=== PATIENT | male | born 1985 | race Caucasian/White ===

== ENCOUNTER 2019-06-17 23:48 | Emergency (ER) | payer OTHER, MEDICAID, SELFPAY ==
[2019-06-17 23:49] VITALS: BP 118/71; PULSE 70; RESP 16; TEMP 36.8; O2SAT 100
--- NOTE | 2019-06-17 23:53 | ED.SYNCOPE ---
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 He says that he had 2 episodes of collapsing today. He says that he just remembers feeling really tired then falling to the ground. He is not sure how long he was on the ground in either of these episodes. He does not believe that he every lost conciousness. No dizziness/light headedness. He has never had this happen before. He reports recently going through a difficult divorce. Since that time he has been under a lot of physical and emotional distress. Poor appetite. 20 pound weight loss. Related Data Home Medications Medication Instructions Recorded Confirmed No Home Medications 06/18/19 06/18/19 Allergies Allergy/AdvReac Type Severity Reaction Status Date / Time No Known Allergies Allergy Verified 06/18/19 00:43 Review of Systems Review of Systems: All systems reviewed & are unremarkable except as noted in HPI and below Constitutional: Constitutional: Denies fever(s) and Reports weakness Eyes: Eyes: Denies change in vision ENT: Denies dizziness Cardiovascular: Cardiovascular: Denies chest pain Respiratory: Respiratory: Denies dyspnea Gastrointestinal: Gastrointestinal: Denies abdominal pain, Denies nausea and Denies vomiting Musculoskeletal: Musculoskeletal: Reports myalgias Neurologic: Denies dizziness, Denies focal weakness, Denies numbness and Reports weakness Psychiatric: Psychiatric: Reports anxiety and Reports depression PMFSH Past Medical History Medical History Arthritis DDD (degenerative disc disease), cervical IBS (irritable bowel syndrome) Surgical History Surgical History Hx of tonsillectomy Social History Social History Smoking packs per day: 0.5 Smoking cigarettes per day: 10.0 Years smoked: 16 Smoking pack-years: 8.00 Gender identity (if verbalized by the patient): Male Exam Const: General: healthy appearing, no acute distress and alert Nutritional Appearance: well nourished Orientation/consciousness: patient oriented x3 HENMT: Head: normal to inspection Resp: Effort & Inspection: normal respiratory effort Auscultation: clear to auscultation bilaterally Cardio: Rate: regular rate Rhythm: regular rhythm Skin: General skin exam: normal color and no pallor Neuro: General: patient oriented x3, moves all extremities, no focal motor deficits and CN's II-XI intact bilaterally Speech: normal speech Extrem: General: normal to inspection Psych: Affect: Sad affect present Course Vital Signs Vital signs: Vital Signs Temperature 36.8 C 06/17/19 23:49 Pulse Rate 70 06/17/19 23:49 Respiratory Rate 16 06/17/19 23:49 Blood Pressure 118/71 06/17/19 23:49 Pulse Oximetry 100 06/17/19 23:49 Temperature 36.8 C 06/17/19 23:49 Pulse Rate 56 L 06/18/19 01:45 Respiratory Rate 19 06/18/19 01:45 Blood Pressure 115/73 06/18/19 01:45 Pulse Oximetry 100 06/18/19 01:45 MDM - Syncope MDM Narrative Medical decision making narrative: Orthostatics mildly positive. IV fluids initiated. Differential Diagnosis Differential diagnosis: Likely syncope due to orthostatic hypotension, dehydration and other (depression, anemia, rhabdomyolysis ) Medical Records Attestation: I reviewed the patient's medical records. Lab Data Attestation: I reviewed the patient's lab results. Result diagrams: 06/18/19 00:10 06/18/19 00:10 Labs: Lab Results 06/18/19 06/18/19 06/18/19 Range/Units 00:10 00:10 00:10 WBC 7.1 (4.5-10.0) K/mm3 RBC 3.97 L (4.6-6.20) M/mm3 Hgb 12.5 L (14.0-18.0) g/dL Hct 37.8 L (42.0-52.0) % MCV 95.2 (80
[2019-06-17 23:58] VITALS: BP 125/86; PULSE 75; RESP 12; O2SAT 100
--- NOTE | 2019-06-18 00:02 | ECG_ITS ---
Measurements Intervals [place] Rate: 64 P: 62 MA: 143 QRS: 45 QRSD: 97 T: 50 QT: 398 QTc: 413 Interpretive Statements SINUS RHYTHM WITH MARKED SINUS ARRHYTHMIA ST ELEVATION IN ANTEROLATERLAT LEADS- PROBABLY EARLY REPOLARIZATION BASELINE ARTIFACT- I, II, III, AVR, AVL, AVF BORDERLINE ECG Electronically Signed On 06-18-2019 7:23:11 CDT by Dexter Mitchell D.O.
[2019-06-18 00:16] VITALS: BP 109/78; BP 115/80; BP 127/87; PULSE 65; PULSE 72; PULSE 85
[2019-06-18 00:25] LABS: Basophils Absolute Auto 0.1 K/mm3 (0.0-0.1); Basophils Percent Auto 0.8 % (0.2-1.2); Eosinophils Absolute Auto 0.2 K/mm3 (0-0.3); Eosinophils Percent Auto 2.1 % (0-4.4); Hematocrit 37.8 % (42.0-52.0); Hemoglobin 12.5 g/dL (14.0-18.0); Immature Granulocyte Absolute 0.01 K/mm3 (0.00-0.031); Immature Granulocyte Percent A 0.1 % (0-0.5); Lymphocytes Absolute Auto 2.14 K/mm3 (0.9-3.2); Lymphocytes Percent Auto 30.3 % (18.3-44.2); Mean Corpuscular HGB Conc 33.1 g/dl (32-36); Mean Corpuscular Hemoglobin 31.5 pg (26-34); Mean Corpuscular Volume 95.2 fl (80-100); Mean Platelet Volume 10.8 fl (7.4-10.4); Monocytes Absolute Auto 0.5 K/mm3 (0.1-0.6); Monocytes Percent Auto 6.8 % (2.6-8.5); Neutrophils Absolute Auto 4.2 K/mm3 (1.3-6.7); Neutrophils Percent Auto 59.9 % (45.5-73.1); Platelet Count Result 195 k/mm3 (150-375); Red Blood Count 3.97 M/mm3 (4.6-6.20); White Blood Count 7.1 K/mm3 (4.5-10.0)
[2019-06-18] MEDS: SODIUM CHLORIDE 0.9% IV 1,000 ML 999 ML IV CONT (00:28)
[2019-06-18 00:40] LABS: Blood Urea Nitrogen 13 mg/dL (9-20); Calcium 9.2 mg/dL (8.4-10.2); Carbon Dioxide 26 mmol/L (22-30); Chloride 103 mmol/L (98-107); Creatine Kinase 161 U/L (55-170); Estimated Glomerular Filt Rate > 60; Glucose 130 mg/dL (75-110); Potassium 3.2 mmol/L (3.4-5.0); Sodium 137 mmol/L (137-145)
[2019-06-18 00:55] VITALS: PULSE 60
[2019-06-18 01:45] VITALS: BP 115/73; PULSE 56; RESP 19; O2SAT 100
== END 2019-06-18 01:50 | disposition home or self-care (01) ==
PROVIDERS: Emergency Provider Emergency Medicine
DX: R55 Syncope and collapse (principal); M19.90 Unspecified osteoarthritis, unspecified site; M50.30 Other cervical disc degeneration, unspecified cervical region; K58.9 Irritable bowel syndrome, unspecified; F17.200 Nicotine dependence, unspecified, uncomplicated; R94.31 Abnormal electrocardiogram [ECG] [EKG]; D64.9 Anemia, unspecified; R53.83 Other fatigue
CPT/HCPCS: 36415; 80048; 82550; 84443; 85025; 93005; 96360; 99283; J7030

== ENCOUNTER 2019-12-05 17:24 | Emergency (ER) | payer SELFPAY ==
[2019-12-05 17:25] VITALS: BP 142/77; PULSE 70; RESP 18; TEMP 36.4; O2SAT 100
--- NOTE | 2019-12-05 17:41 | ED.DENTAL ---
HPI - Dental/Oral General Chief complaint: Dental/Oral Stated complaint: Tooth pain Time Seen by Provider: 12/05/19 17:29 Source: patient Mode of arrival: ambulatory Limitations: no limitations History of Present Illness HPI Narrative: This is a 34 year old male that presents to the ER for pain after recent tooth extraction. Reports he had 8 teeth extracted on Saturday and Saturday of this week. Reports he has had pain since the procedure. 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 He has not called his dentist about this yet. Denies fever. MD Complaint: tooth pain Related Data Allergies Allergy/AdvReac Type Severity Reaction Status Date / Time No Known Allergies Allergy Verified 12/05/19 17:26 Review of Systems Review of Systems: Narrative: CONSTITUTIONAL: Denies fever ENT: Reports dentalgia All systems reviewed & are unremarkable except as noted in HPI and below PMFSH Past Medical History Medical History (Updated 06/19/19 @ 00:00 by Abiola Crabtree) Arthritis DDD (degenerative disc disease), cervical IBS (irritable bowel syndrome) Surgical History Surgical History (Updated 12/05/19 @ 17:48 by Rosa Sullivan PA-C) Hx of tonsillectomy Social History Social History Smoking packs per day: 0.5 Smoking cigarettes per day: 10.0 Years smoked: 16 Smoking pack-years: 8.00 Gender identity (if verbalized by the patient): Male Exam Narrative: Exam Narrative: GENERAL: Well-appearing, well-nourished, and in no acute distress. HEAD: Normocephalic, atraumatic. EYES: EOMI. ENT: Mucous membranes moist. Oropharynx without tonsillar hypertrophy exudate or other lesions. Bilateral TMs pearly garcia non-bulging. Poor dentition. Several teeth extracted on the right upper and lower molars. Mild surrounding edema and erythema of the lower teeth, no fluctuance to suggest abscess NECK: Supple. No adenopathy or masses. CHEST: Clear to auscultation. No respiratory distress. No wheezes rales or rhonchi HEART: Regular rate and rhythm. No murmur heard. Normal peripheral pulses. EXTREMITIES: Normal range of motion. No edema. SKIN: Warm, dry, no rash. NEURO: No focal deficits. Alert and oriented x3. PSYCH: Normal mood and affect Course Vital Signs Vital signs: Vital Signs Temperature 97.6 F 12/05/19 17:25 Pulse Rate 70 12/05/19 17:25 Respiratory Rate 18 12/05/19 17:25 Blood Pressure 142/77 H 12/05/19 17:25 Pulse Oximetry 100 12/05/19 17:25 Temperature 97.6 F 12/05/19 17:25 Pulse Rate 70 12/05/19 17:25 Respiratory Rate 18 12/05/19 17:25 Blood Pressure 142/77 H 12/05/19 17:25 Pulse Oximetry 100 12/05/19 17:25 MDM - Dental/Oral MDM Narrative Medical decision making narrative: Patient presents to the emergency department after recent tooth extraction with pain. He is afebrile and nontoxic-appearing. Mild redness and swelling surrounding extraction of the lower teeth. No fluctuance noted to suggest abscess. Patient will be started on oral antibiotics. He was instructed to call his dentist on Saturday for follow-up. Patient was given warnings to return to the ER Critical Care Time Critical Care Time Critical Care Time: No Discharge Plan Discharge Clinical Impression: S/P tooth extraction Patient Disposition: Home, Self-Care Condition: Stable Instructions: Antibiotic Form, Tooth Extraction (DC) Additional Instructions: Return to the Emergency Department if you experience fever >101, increasing swelling and redness of your tooth, or any other symptoms that are concerning to you Take antibiotic as prescribed. Tylenol or Ibuprofen as needed for pain. Prescribed pain medication as needed. Ondansetron as needed for nausea Follow up with your dentist Prescriptions: New ondansetron 4 mg tablet,disintegrating 4 mg PO Q8H PRN (Reason: nausea and
[2019-12-05] MEDS: KETOROLAC (*BKC) 60 MG/2 ML VIAL IM (18:13)
== END 2019-12-05 18:14 | disposition home or self-care (01) ==
LOC: ANHED 17:55
PROVIDERS: Emergency Provider Emergency Medicine
DX: K08.89 Other specified disorders of teeth and supporting structures (principal); K58.9 Irritable bowel syndrome, unspecified; M19.90 Unspecified osteoarthritis, unspecified site; F17.210 Nicotine dependence, cigarettes, uncomplicated; Z98.818 Other dental procedure status
CPT/HCPCS: 96372; 99283; J1885

== ENCOUNTER 2020-06-04 10:43 | Emergency (ER) | payer MEDICAID, SELFPAY ==
[2020-06-04 11:05] VITALS: BP 103/69; PULSE 75; RESP 18; TEMP 36.6; O2SAT 100
[2020-06-04] MEDS: SODIUM CHLORIDE 0.9% IV 1,000 ML 999 ML IV CONT (11:55)
[2020-06-04] MEDS: KETOROLAC 30 MG/ML VIAL (*BKC) IV PUSH (11:56)
[2020-06-04] MEDS: METOCLOPRAMIDE HCL INJ 10 MG/2 ML VIAL IV PUSH (11:59)
[2020-06-04] MEDS: FAMOTIDINE 20 MG/2 ML VIAL IV PUSH (12:01)
--- NOTE | 2020-06-04 12:42 | ED.GENADULT ---
HPI - General Adult General Chief complaint: Neck Pain/Injury Stated complaint: neck pain/nausea Time Seen by Provider: 06/04/20 11:03 Source: patient Mode of arrival: ambulatory Limitations: no limitations History of Present Illness HPI narrative: Patient is a 34-year-old male who presents with posterior headache and neck pain that he woke up with this morning patient notes history of migraines with similar occurrence in the past denies injury or trauma or recent illness presents in no distress has not taken anything for his symptoms also notes light noise sensitivity patient on arrival otherwise in no distress resting comfortably presents with normal gait with normal speech patient does not see primary care Related Data Allergies Allergy/AdvReac Type Severity Reaction Status Date / Time No Known Allergies Allergy Verified 06/04/20 11:09 Review of Systems Review of Systems: All systems reviewed & are unremarkable except as noted in HPI and below PMFSH Past Medical History Medical History (Updated 06/04/20 @ 12:44 by Richardson Elam PA-C) Arthritis DDD (degenerative disc disease), cervical IBS (irritable bowel syndrome) Surgical History Surgical History Hx of tonsillectomy Social History Social History Smoking packs per day: 0.5 Smoking cigarettes per day: 10.0 Years smoked: 16 Smoking pack-years: 8.00 Gender identity (if verbalized by the patient): Male Exam Narrative: Exam Narrative: GENERAL: Well-appearing, well-nourished, and in no acute distress. HEAD: Normocephalic, atraumatic. EYES: PERRLA and EOMI. ENT: Nares clear, no rhinorrhea or epistaxis. Mucous membranes moist. NECK: Supple. No adenopathy or masses. No carotid bruits or JVD CHEST: Clear to auscultation. No respiratory distress. No wheezes rales or rhonchi HEART: Regular rate and rhythm. No murmur heard. EXTREMITIES: Normal range of motion. No edema. SKIN: Warm, dry, no rash. NEURO: No focal deficits. Alert and oriented x3. Cranial nerves II through XII grossly intact PSYCH: Normal mood and affect. Course Course Emergency Course: Patient hydrated and treated for migraine the emergency department noted resolution of symptoms feels comfortable for discharge home will follow with primary care ABCs and vital signs intact and stable Vital Signs Vital signs: Vital Signs Temperature 97.8 F 06/04/20 11:05 Pulse Rate 75 06/04/20 11:05 Respiratory Rate 18 06/04/20 11:05 Blood Pressure 103/69 06/04/20 11:05 Pulse Oximetry 100 06/04/20 11:05 Temperature 97.8 F 06/04/20 11:05 Pulse Rate 75 06/04/20 11:05 Respiratory Rate 18 06/04/20 11:05 Blood Pressure 103/69 06/04/20 11:05 Pulse Oximetry 100 06/04/20 11:05 Medical Decision Making MDM Narrative Medical decision making narrative: Patients headache was not sudden or maximal in onset. There are o focal neurological deficits on exam. Subarachnoid hemorrhage is felt to be unlikey at this time. There is no history of fever, and neck is supple without meningismus, making meningitis unlikely. No traumatic history or signs of trauma on exam. No risk factors for CVA, risk factors reviewed. NO ocular signs on exam and in history to suggest acute glaucoma. Patients headache is felt to be a reasonable candidate for outpatient evaluation Vital Signs Vital Signs: Vital Signs Temperature 97.8 F 06/04/20 11:05 Pulse Rate 75 06/04/20 11:05 Respiratory Rate 18 06/04/20 11:05 Blood Pressure 103/69 06/04/20 11:05 Pulse Oximetry 100 06/04/20 11:05 Temperature 97.8 F 06/04/20 11:05 Pulse Rate 75 06/04/20 11:05 Respiratory Rate 18 06/04/20 11:05 Blood Pressure 103/69 06/04/20 11:05 Pulse Oximetry 100 06/04/20 11:05 Discharge Plan Discharge Clinical Impression: Headache Patient Disposition: Home, Self-Care
[2020-06-04 12:56] VITALS: BP 103/53; PULSE 77; RESP 16; O2SAT 100
== END 2020-06-04 12:56 | disposition home or self-care (01) ==
PROVIDERS: Emergency Provider Emergency Medicine
DX: R51.9 Headache, unspecified (principal); M19.90 Unspecified osteoarthritis, unspecified site; K58.9 Irritable bowel syndrome, unspecified; M50.30 Other cervical disc degeneration, unspecified cervical region; F17.210 Nicotine dependence, cigarettes, uncomplicated
CPT/HCPCS: 96361; 96374; 96375; 99284; J1885; J2765; J7030

== ENCOUNTER 2020-11-18 09:21 | Emergency (ER) | payer OTHER, SELFPAY ==
--- NOTE | ~2020-11-18 | CT_ITS ---
EXAMINATION: CT brain wo con, CT cervical spine wo con EXAM DATE: 11/18/2020 11:16 INDICATION: Migraine, neck pain . Dizziness and nausea. TECHNIQUE: Spiral CT of the head was performed without contrast. Axial, coronal images were reviewed . Spiral CT of the cervical spine was performed without contrast. Axial images were reviewed. Coron al and sagittal reformatted images were also reviewed. [facility] 6[facility] (accession [id number]), 402.39 (accession [id number]) mGy-cm. The exposure was tailored according to patient size, and iterative reconstruction (ASIR) was used as additional do se reduction technique. There is no prior study for comparison. FINDINGS: HEAD CT: There is no acute intraparenchymal hemorrhage. No evidence of intraparenchymal brain mass l esion. No evidence of acute infarction. There is no mass effect or midline shift. There is no obstru ctive hydrocephalus suspected. There are no extra-axial collections. There are no acute calvarial f ractures. The orbits are unremarkable. Soft tissue is unremarkable. The visualized sinuses and mas toid air cells are well aerated. CERVICAL CT: Lung apices are clear. There is no evidence of acute cervical fracture. The odontoid pr ocess is intact. Pre-dens space is normal. Prevertebral soft tissue is normal. There are no soft t issue abnormalities identified. There is no disc space widening or traumatic vertebral body subluxat ion suspected. There is mild disc disease and uncovertebral joint arthropathy at C6-7. More diffuse mild cervical facet arthropathy. No stenosis. A detailed level by level evaluation of spondylosis can be added as addendum if requested. IMPRESSION: 1. No acute intracranial findings or cervical fracture. 2. Mild cervical spondylosis. Reviewed, dictated and finalized at location A. IMPRESSION: 1. No acute intracranial findings or cervical fracture. 2. Mild cervical spondylosis.
[2020-11-18 09:33] VITALS: BP 109/80; PULSE 79; RESP 16; TEMP 36.1; O2SAT 97
--- NOTE | 2020-11-18 10:49 | ED.NECK ---
HPI - Neck Pain/Injury General Chief Complaint: Neck Pain/Injury Stated Complaint: neck pain Time Seen by Provider: 11/18/20 10:11 Source: patient Mode of arrival: ambulatory Limitations: no limitations History of Present Illness HPI Narrative: This is a 34 year old male that presents to the ER for worsening neck pain over the last 2 weeks. Does report history of previous problems with the neck. Reports he is to have to get steroid injections in his neck. No new injuries or trauma. Reports sometimes the pain causes him to get migraines. He has been taking Excedrin with little relief. Denies fever, vision changes, vomiting, stiff neck, numbness, or weakness. Related Data Home Medications Medication Instructions Recorded Confirmed No Home Medications 11/18/20 11/18/20 Allergies Allergy/AdvReac Type Severity Reaction Status Date / Time No Known Allergies Allergy Verified 11/18/20 09:41 Review of Systems Review of Systems: CONSTITUTIONAL: Denies fever EYES: Denies visual changes GASTROINTESTINAL: Denies vomiting NEUROLOGIC: Reports headache. Denies numbness, or weakness. All systems reviewed & are unremarkable except as noted in HPI and below PMFSH Past Medical History Medical History (Updated 11/18/20 @ 12:53 by Rosa Sullivan PA-C) Arthritis DDD (degenerative disc disease), cervical IBS (irritable bowel syndrome) Surgical History Surgical History Hx of tonsillectomy Social History Social History (Updated 11/18/20 @ 10:52 by Rosa Sullivan PA-C) Smoking packs per day: 0.5 Smoking cigarettes per day: 10.0 Years smoked: 16 Smoking pack-years: 8.00 Substance use: never Gender identity (if verbalized by the patient): Male Exam Narrative: GENERAL: Well-appearing, well-nourished, and in no acute distress. HEAD: Normocephalic, atraumatic. EYES: PERRLA and EOMI. ENT: Nares clear, no rhinorrhea or epistaxis. Mucous membranes moist. Oropharynx without tonsillar hypertrophy exudate or other lesions. Bilateral TMs pearly garcia non-bulging NECK: Supple. No adenopathy or masses. Tender to palpation of the cervical paraspinal musculature. Normal range of motion CHEST: Clear to auscultation. No respiratory distress. No wheezes rales or rhonchi HEART: Regular rate and rhythm. No murmur heard. Normal peripheral pulses. EXTREMITIES: Normal range of motion. No edema. SKIN: Warm, dry, no rash. NEURO: No focal deficits. Alert and oriented x3. Cranial nerves II through XII grossly intact. Normal [id number] PSYCH: Normal mood and affect Course Vital Signs Vital signs: Vital Signs Temperature 97 F L 11/18/20 09:33 Pulse Rate 79 11/18/20 09:33 Respiratory Rate 16 11/18/20 09:33 Blood Pressure 109/80 11/18/20 09:33 Pulse Oximetry 97 11/18/20 09:33 Temperature 97 F L 11/18/20 09:33 Pulse Rate 87 11/18/20 11:30 Respiratory Rate 14 11/18/20 11:30 Blood Pressure 97/72 L 11/18/20 11:30 Pulse Oximetry 96 11/18/20 11:30 MDM - Neck Pain/Injury MDM Narrative Medical decision making narrative: Patient presents to the emergency department for ongoing neck pain over the last couple of weeks. Tender to palpation of the paraspinal cervical musculature. Normal range of motion in the neck. He is afebrile and nontoxic-appearing. His vitals are stable. He is neurologically intact. CBC is without leukocytosis. CT scan of the brain is without acute findings. CT scan of the cervical spine shows mild cervical spondylosis. No other acute findings. Patient was updated on case findings. Reports relief with migraine cocktail. He is stable and felt appropriate for further outpatient evaluation. He was given warnings to return to the ER Lab Data Attestation: I reviewed the patient's lab results. Result diagrams: 11/18/20 11:44 11/18/20 11:44 Labs: Lab Results 11/18/20 11/18/20 Range/Unit
[2020-11-18] MEDS: diphenhydrAMINE HCl INJ 50 MG/ML VIAL 25 MG IV PUSH (11:02)
[2020-11-18] MEDS: METOCLOPRAMIDE HCL INJ 10 MG/2 ML VIAL IV PUSH (11:02)
[2020-11-18] MEDS: KETOROLAC 30 MG/ML VIAL (*BKC) IV PUSH (11:03)
[2020-11-18] MEDS: SODIUM CHLORIDE 0.9% IV 1,000 ML 999 ML IV CONT (11:04)
[2020-11-18 11:30] VITALS: BP 97/72; PULSE 87; RESP 14; O2SAT 96
[2020-11-18 11:54] LABS: Basophils Absolute Auto 0.1 K/mm3 (0.0-0.1); Eosinophils Absolute Auto 0.2 K/mm3 (0-0.3); Eosinophils Percent Auto 2.5 % (0-4.4); Hematocrit 38.4 % (42.0-52.0); Hemoglobin 12.9 g/dL (14.0-18.0); Immature Granulocyte Absolute 0.02 K/mm3 (0.00-0.031); Immature Granulocyte Percent A 0.3 % (0-0.5); Lymphocytes Absolute Auto 1.58 K/mm3 (0.9-3.2); Lymphocytes Percent Auto 23.4 % (18.3-44.2); Mean Corpuscular HGB Conc 33.6 g/dl (32-36); Mean Corpuscular Hemoglobin 32.2 pg (26-34); Mean Corpuscular Volume 95.8 fl (80-100); Monocytes Absolute Auto 0.4 K/mm3 (0.1-0.6); Monocytes Percent Auto 5.9 % (2.6-8.5); Neutrophils Absolute Auto 4.5 K/mm3 (1.3-6.7); Neutrophils Percent Auto 66.9 % (45.5-73.1); Platelet Count Result 196 k/mm3 (150-375); Red Blood Count 4.01 M/mm3 (4.6-6.20); Red Cell Distribution Width 12.7 % (11.5-14.5); White Blood Count 6.8 K/mm3 (4.5-10.0)
[2020-11-18 12:10] LABS: Anion Gap 4 mmol/L (8-16); Blood Urea Nitrogen 9 mg/dL (9-20); Calcium 9.1 mg/dL (8.4-10.2); Carbon Dioxide 31 mmol/L (22-30); Chloride 106 mmol/L (98-107); Estimated CRCL calculation 108 ml/min; Estimated Glomerular Filt Rate > 60; Glucose 102 mg/dL (65-110); Potassium 4.5 mmol/L (3.4-5.0); Sodium 141 mmol/L (137-145)
[2020-11-18 12:51] VITALS: BP 101/66; PULSE 78; RESP 16; O2SAT 99
[2020-11-18 13:30] LABS: Erythrocyte Sedimentation Rate 10 mm/hr (0-20)
== END 2020-11-18 13:15 | disposition home or self-care (01) ==
PROVIDERS: Physician Assistant; Emergency Provider Emergency Medicine
DX: M54.2 Cervicalgia (principal); G44.209 Tension-type headache, unspecified, not intractable; M19.90 Unspecified osteoarthritis, unspecified site; K58.9 Irritable bowel syndrome, unspecified; F17.210 Nicotine dependence, cigarettes, uncomplicated; M47.812 Spondylosis without myelopathy or radiculopathy, cervical region
CPT/HCPCS: 36415; 70450; 72125; 80048; 85025; 85652; 96365; 96375; 99284; J0131; J1100; J1200; J1885; J2765; J7030

== ENCOUNTER 2021-09-28 15:32 | Emergency (ER) | payer OTHER, SELFPAY ==
[2021-09-28 15:34] VITALS: BP 124/85; PULSE 77; RESP 14; TEMP 37.3; O2SAT 100
--- NOTE | 2021-09-28 16:11 | ED.WOUNDLAC ---
HPI - Wound/Laceration General Chief Complaint: Wound/Laceration Stated Complaint: left hand laceration Time Seen by Provider: 09/28/21 15:49 History of Present Illness HPI narrative: Patient is a 35-year-old [id number] male here for evaluation of a laceration sustained to the dorsal aspect of his left third digit while he was at work. Patient states that he scraped his hand against a piece of metal while he was working leading to the laceration. No blood thinner use, bleeding controlled prior to arrival. He denies any numbness, weakness, or tingling in his fingers. He is unsure of his last tetanus shot. Related Data Home Medications Medication Instructions Recorded Confirmed No Home Medications 11/18/20 11/18/20 Allergies Allergy/AdvReac Type Severity Reaction Status Date / Time No Known Allergies Allergy Verified 09/28/21 15:37 Review of Systems Review of Systems: Gen.: Denies fevers or chills Eyes: Denies eye pain or visual change ENT: Denies congestion Respiratory: Denies shortness of breath or cough CV: Denies chest pain or palpitations GI: Denies abdominal pain nausea, emesis or diarrhea denies burning, urgency, frequency or hematuria Musculoskeletal: Denies back pain or muscle pain Neuro: Denies numbness, tingling, weakness or focal weakness Skin: Reports laceration Except as documented, all other systems reviewed and negative [facility] Past Medical History Medical History (Updated 09/28/21 @ 16:50 by Rosa Cannon PA-C) Arthritis DDD (degenerative disc disease), cervical IBS (irritable bowel syndrome) Surgical History Surgical History Hx of tonsillectomy Social History Social History (Updated 11/18/20 @ 10:52 by Rosa Sullivan PA-C) Smoking packs per day: 0.5 Smoking cigarettes per day: 10.0 Years smoked: 16 Smoking pack-years: 8.00 Substance use: never Gender identity (if verbalized by the patient): Male Exam Narrative: Gen: Alert, oriented, no acute distress Eyes: EOMI, no icterus Pulm: Respirations even and unlabored, symmetric thorax expansion, no audible stridor or visible cyanosis CV: Regular rate per telemetry GI: No distension, no voluntary/involuntary guarding Neuro: AOx4, moves all extremities without apparent difficulty or weakness, follows commands MSK: Full range of motion in left upper extremity. Sensation intact to entirety of digit. Skin: Patient has c-shaped superficial laceration to dorsal aspect of left third digit proximal to the PIP joint with active bleeding; irrigated and examined under bloodless field; no evidence of FB Psych: Normal mood/affect, insight/judgement good, adequate fund of knowledge, recent/remote memory intact Course Vital Signs Vital signs: Vital Signs Temperature 99.2 F 09/28/21 15:34 Pulse Rate 77 09/28/21 15:34 Respiratory Rate 14 09/28/21 15:34 Blood Pressure 124/85 09/28/21 15:34 Pulse Oximetry 100 09/28/21 15:34 Oxygen Delivery Room Air 09/28/21 15:34 Temperature 99.2 F 09/28/21 15:34 Pulse Rate 80 09/28/21 16:55 Respiratory Rate 16 09/28/21 16:55 Blood Pressure 124/85 09/28/21 15:34 Pulse Oximetry 99 09/28/21 16:55 Oxygen Delivery Room Air 09/28/21 15:34 Procedures Laceration Laceration 1: Date: 09/28/21 Time: 16:48 Site: other (L 3rd digit) Size (cm): 1.5 Description: linear Depth: simple, single layer Local Anesthetic: lidocaine 1% Amount of anesthesia used (mL): 2 Pre-repair: wound explored, irrigated and irrigated extensively ====== Skin Level ====== Skin layer closed with: other (ethilon) Size (cm): 5-0 Number of sutures: 3 Technique: simple, interrupted ====== Subcutaneous Layer ====== ====== Muscle Layer ====== ====== Tendon Layer ====== Dressing: cleansed with betadi
[2021-09-28] MEDS: TETANUS,DIPHTHERIA,AC PERTUSSIS ADULT (0.5 ML) BOOSTRIX IM (16:15)
--- NOTE | 2021-09-28 16:27 | PC.NURSE ---
upon provider placing steri-strips, patient started to have bleeding control issues. provider placing sutures
[2021-09-28] MEDS: LIDOCAINE HCL 1% LOCAL INJ 20 ML VIAL (16:31)
[2021-09-28 16:55] VITALS: PULSE 80; RESP 16; O2SAT 99
== END 2021-09-28 16:56 | disposition home or self-care (01) ==
PROVIDERS: Emergency Provider General Practice
DX: S61.213A Laceration without foreign body of left middle finger without damage to nail, initial encounter (principal); Z23 Encounter for immunization; M19.90 Unspecified osteoarthritis, unspecified site; K58.9 Irritable bowel syndrome, unspecified; F17.210 Nicotine dependence, cigarettes, uncomplicated; W26.8XXA Contact with other sharp object(s), not elsewhere classified, initial encounter
CPT/HCPCS: 12001; 90471; 90715; 99282

== ENCOUNTER 2021-10-04 12:50 | Emergency (ER) | payer OTHER, SELFPAY ==
--- NOTE | 2021-10-04 12:55 | ED.WOUNDLAC ---
HPI - Wound/Laceration General Chief Complaint: Wound/Laceration Stated Complaint: lac left hand Time Seen by Provider: 10/04/21 13:01 Source: patient and RN notes reviewed Mode of arrival: ambulatory Limitations: no limitations History of Present Illness HPI narrative: 35-year-old male presents with concern for a laceration to the third digit of his left hand. He reports he sustained a laceration 6 days ago and received sutures in the ER. He reports 3 sutures that are still intact. He reports he is concerned because he feels that the stitches are pulling when he moves his hands or makes a fist. He reports the areas become slightly red and oozes a small amount of blood. He denies any purulent drainage, wound dehiscence, finger pain, swelling, redness. Reports he has been applying Neosporin. 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 Extremity Location: Left: hand Related Data Home Medications Medication Instructions Recorded Confirmed No Home Medications 11/18/20 11/18/20 Allergies Allergy/AdvReac Type Severity Reaction Status Date / Time No Known Allergies Allergy Verified 09/28/21 15:37 Review of Systems Review of Systems: CONSTITUTIONAL: Denies malaise, chills, sweats, or fever. SKIN: Reports laceration to the third digit of the left MUSCULOSKELETAL: Denies muscle skeletal pain NEUROLOGIC: Denies numbness, weakness All systems reviewed & are unremarkable except as noted in HPI and below PMFSH Past Medical History Medical History (Updated 10/04/21 @ 13:18 by Cherelle Banks NP) Arthritis DDD (degenerative disc disease), cervical IBS (irritable bowel syndrome) Surgical History Surgical History Hx of tonsillectomy Social History Social History (Updated 11/18/20 @ 10:52 by Rosa Sullivan PA-C) Smoking packs per day: 0.5 Smoking cigarettes per day: 10.0 Years smoked: 16 Smoking pack-years: 8.00 Substance use: never Gender identity (if verbalized by the patient): Male Comments At time of signature, agree with nursing past medical, surgical, social and family history. There is no relevant family history pertinent to the presenting complaint Exam Narrative: GENERAL: Well-appearing, well-nourished, and in no acute distress. HEAD: Normocephalic, atraumatic. EYES: PERRLA, conjunctivae clear, and EOMI. ENT: Mucous membranes moist. Oropharynx without edema, erythema or lesions. NECK: Supple. No lymphadenopathy CHEST: Clear to auscultation. No respiratory distress. HEART: Regular rate and rhythm. SKIN: Warm, dry. C-shaped laceration noted to the dorsal aspect of the third digit of the left hand between the PIP and the MIP joints, 3 intact sutures noted wound is well approximated with a small amount of dried blood. No surrounding erythema, edema, induration noted, no purulent drainage noted. Range of motion, strength, sensation grossly normal in the digit NEURO: Alert and oriented x3. PSYCH: Normal mood and affect Course Course Emergency Course: Wound was cleaned, palmar splint applied to prevent movement of the digit to facilitate healing. Patient is aware of diagnosis, understands and agrees to treatment plan. Anticipatory guidance given. Patient agrees to follow-up as directed and is aware of reasons to seek care at the emergency department. Portions of this record may have been created with voice recognition software Level of Care: Express Care Visit Vital Signs Vital signs: Reviewed. MDM - Wound/Laceration MDM Narrative Medical decision making narrative: Exam findings show no acute concerns or changes; patient is non-toxic appearing and is in no distress. Patient is appropriate for outpatient treatment and follow-up. Differential Diagnosis Differential diagnosis: Likely laceration, abrasion and avulsion of skin Critical Care Time Critical Care Time Critical
[2021-10-04 12:56] VITALS: BP 112/72; PULSE 86; RESP 18; TEMP 36.7; O2SAT 100
== END 2021-10-04 13:28 | disposition home or self-care (01) ==
PROVIDERS: Emergency Provider Nurse Practitioner
DX: Z48.01 Encounter for change or removal of surgical wound dressing (principal)
CPT/HCPCS: 29130; 99212; G0463

== ENCOUNTER 2021-10-13 12:16 | Emergency (ER) | payer OTHER, SELFPAY ==
[2021-10-13 12:35] VITALS: BP 113/72; PULSE 85; RESP 16; TEMP 36.4; O2SAT 100
--- NOTE | 2021-10-13 13:00 | ED.EXTPRO ---
HPI - Extremity Problem General Chief complaint: Wound/Laceration Stated complaint: STITCHES REMOVAL Time Seen by Provider: 10/13/21 13:00 History of Present Illness HPI Narrative: Ced Fowler is a 35 yo male here for suture removal of L hand, base 3rd finger- 3 sutures, Have been in for 11 days Related Data Home Medications Medication Instructions Recorded Confirmed No Home Medications 11/18/20 10/13/21 Allergies Allergy/AdvReac Type Severity Reaction Status Date / Time No Known Allergies Allergy Verified 10/13/21 13:03 Review of Systems Review of Systems: CONSTITUTIONAL: Denies fever, chills, sweats. EYES: Denies visual changes, redness, discharge. ENT: Denies rhinorrhea, congestion, sore throat, otalgia. CARDIOVASCULAR: Denies chest pain, palpitations, edema. RESPIRATORY: Denies dyspnea, wheezing, cough GASTROINTESTINAL: Denies abdominal pain, nausea, vomiting, diarrhea. GENITOURINARY: Denies dysuria, hematuria, abnormal discharge SKIN: Denies rash or itching. NEUROLOGIC: Denies numbness, or focal weakness. PSYCHIATRIC: Denies anxiety or depression. Suture removal left hand PMFSH Past Medical History Medical History (Updated 10/13/21 @ 13:11 by Nesha Dangelo CNP) Arthritis DDD (degenerative disc disease), cervical IBS (irritable bowel syndrome) Surgical History Surgical History Hx of tonsillectomy Social History Social History (Updated 11/18/20 @ 10:52 by Rosa Sullivan PA-C) Smoking packs per day: 0.5 Smoking cigarettes per day: 10.0 Years smoked: 16 Smoking pack-years: 8.00 Substance use: never Gender identity (if verbalized by the patient): Male Comments At time of signature, I agree with nursing past medical, surgical, social and family history. There is no relevant family history pertinent to the presenting complaint. Exam Narrative: GENERAL: This is a well-nourished, well-developed patient, in mild distress. HEAD: normocephalic, atraumatic. EYES: Sclera clear/white. Vision is grossly intact. EARS: External ears normal, . Hearing grossly intact. NOSE: External nose normal without nasal discharge, nares without redness, no rhinorrhea. THROAT: Mucous membranes moist, NECK: Neck supple, non-tender CARDIOVASCULAR: Regular rate and rhythm without murmurs, gallops, or rubs. RESPIRATORY: Clear to auscultation. Breath sounds equal bilaterally. No wheezes, rales, or rhonchi. GASTROINTESTINAL: Not done SKIN: warm, intact with no suspicious lesions or rash, good texture and turgor. Suture removal of 3 sutures left hand base of third finger NEURO: awake, alert, and oriented to person, place and time. There were no obvious focal neurologic abnormalities. Steady gait EXTREMITIES: Normal range of motion. BACK: Nontender without deformity Course Course Emergency Course: Suture removal Level of Care: Express Care Visit Vital Signs Vital signs: Vital Signs Temperature 97.5 F L 10/13/21 12:35 Pulse Rate 85 10/13/21 12:35 Respiratory Rate 16 10/13/21 12:35 Blood Pressure 113/72 10/13/21 12:35 Pulse Oximetry 100 10/13/21 12:35 Oxygen Delivery Room Air 10/13/21 12:35 Temperature 97.5 F L 10/13/21 12:35 Pulse Rate 85 10/13/21 12:35 Respiratory Rate 16 10/13/21 12:35 Blood Pressure 113/72 10/13/21 12:35 Pulse Oximetry 100 10/13/21 12:35 Oxygen Delivery Room Air 10/13/21 12:35 MDM - Extremity (Nontraumatic) Differential Diagnosis Differential diagnosis: Likely other Critical Care Time Critical Care Time Critical Care Time: No Discharge Plan Discharge Clinical Impression: Visit for suture removal Patient Disposition: Home, Self-Care Condition: Stable Instructions: Stitches Removal (ED) Prescriptions: No Action No Home Medications Follow-up/Referrals: UNKNOWN,DOCTOR [Primary Care Provider] - Time of Disposition: 13:11
== END 2021-10-13 13:15 | disposition home or self-care (01) ==
PROVIDERS: Emergency Provider Nurse Practitioner
DX: S61.412D Laceration without foreign body of left hand, subsequent encounter (principal); X58.XXXD Exposure to other specified factors, subsequent encounter; M19.90 Unspecified osteoarthritis, unspecified site; M50.30 Other cervical disc degeneration, unspecified cervical region; F17.210 Nicotine dependence, cigarettes, uncomplicated
CPT/HCPCS: 99211; G0463

== ENCOUNTER 2022-03-23 08:07 | Emergency (ER) | payer OTHER, SELFPAY ==
[2022-03-23] VITALS (13 sets, daily range): BP systolic 110–126; BP diastolic 56–83; PULSE 67–68; RESP 14–16; TEMP 36.6; O2SAT 97–100
--- NOTE | ~2022-03-23 | US_ITS ---
EXAMINATION: US scrotum doppler DATE: 03/23/2022 10:59 INDICATION: Left testicular pain TECHNIQUE: Testicular sonogram utilizing grayscale and Doppler COMPARISON: None. FINDINGS: The right testis measures 4.5 x 3.2 x 2.4 cm. The left testis measures 4.5 x 3.2 x 2.3 cm. And 1.5 mm echogenic focus in the right kidney and 2 mm echogenic focus in the left kidney with suggestion of s ome subtle posterior acoustic shadowing most consistent with tiny isolated dystrophic calcifications of doubtful clinical significance. Symmetric otherwise normal grayscale appearance to both testes. Th ere is normal vascular flow to both testes. The right epididymis is normal with normal vascular flow. 6 mm anechoic left epididymal head cyst. The left epididymis is otherwise normal with normal vascula r flow. There is no varicocele or hydrocele. IMPRESSION: 1. 6 mm left epididymal head cyst and a couple 1-2 mm bilateral testicular dystrophic calcifications which are of doubtful clinical significance. No etiology for reported left testicular pain. Reviewed, dictated and finalized at location A. AGENT IMPRESSION: 1. 6 mm left epididymal head cyst and a couple 1-2 mm bilateral testicular dys trophic calcifications which are of doubtful clinical significance. No etiology for reported left testicular pain.
--- NOTE | ~2022-03-23 | CT_ITS ---
EXAMINATION: CT abdomen pelvis wo con DATE: 03/23/2022 12:48 INDICATION: Bilateral flank pain and dysuria TECHNIQUE: Computed tomography (CT) of the abdomen and pelvis was performed without intravenous contr ast. The dose-length product (DLP) was 278.75 mGy-cm. Automated exposure control and iterative recons truction technique were employed. COMPARISON: 08/17/2017 FINDINGS: The lung bases are clear. The heart size is normal. Cysts of the liver measure up to 9 mm i n the left hepatic lobe. The spleen, pancreas, and adrenal glands are normal. Stones are present in t he nondistended gallbladder. The kidneys are unremarkable. No stones are identified in the kidneys, u reters, or bladder. No hydronephrosis or hydroureter. No pathologically enlarged abdominal or pelvic lymph nodes are identified. No free intraperitoneal gas or evidence of bowel obstruction. The appendi x is normal. IMPRESSION: 1. No urolithiasis identified. 2. Cholelithiasis without evidence of cholecystitis. Reviewed, dictated and finalized at location B.
[2022-03-23 09:25] LABS: Appearance Urine Clear (Clear); Bilirubin Urine Negative (Negative); Blood Urine Trace-intact (Negative); Color Urine Yellow (Yellow); Glucose Urine UA Negative (Negative); Ketones Urine Negative (Negative); Leukocyte Esterase Ur Negative LEU/UL (Negative); Nitrate Urine Negative (Negative); Protein Urine Negative (Negative); Specific Grav Ur 1.015 (1.001-1.035); Urobilinogen Urine 0.2 mg/dL (<2.0); pH Urine 7.5 (5.0-9.0)
[2022-03-23 10:05] LABS: Mucus Urine Rare /lpf; WBC Urine 0-3 /hpf
[2022-03-23] MEDS: IBUPROFEN 600 MG TABLET PO (10:13)
[2022-03-23 10:24] LABS: Add Urine Microscopic? YES
--- NOTE | 2022-03-23 11:10 | PC.NURSE ---
Patient report given to MAMADOU Presley. All questions answered and care of patient transferred.
--- NOTE | 2022-03-23 14:33 | ED.GENADULT ---
HPI - General Adult General Chief complaint: Urogenital-Male Stated complaint: body aches, back pain Time Seen by Provider: 03/23/22 09:59 History of Present Illness HPI narrative: Patient is a 36-year-old male who presents ER with foul-smelling urine. Began today. No fevers or chills or sweats. Reports its associate with some mild right-sided back pain. No history of kidney stone. Also has some chronic discomfort to the left testicle ongoing over the last couple months. Has not been evaluated. Related Data Home Medications Medication Instructions Recorded Confirmed No Home Medications 11/18/20 10/13/21 Allergies Allergy/AdvReac Type Severity Reaction Status Date / Time No Known Allergies Allergy Verified 10/13/21 13:03 Review of Systems Constitutional: Constitutional: Denies chills, Denies fatigue and Denies fever(s) Gastrointestinal: Gastrointestinal: Denies abdominal pain, Denies nausea and Denies vomiting Genitourinary: Genitourinary: Denies dysuria, Denies penile discharge and Reports testicular pain Comments: Foul-smelling urine PMFSH Past Medical History Medical History (Updated 03/23/22 @ 14:34 by Jalil Earl MD) Arthritis DDD (degenerative disc disease), cervical IBS (irritable bowel syndrome) Surgical History Surgical History Hx of tonsillectomy Social History Social History (Updated 11/18/20 @ 10:52 by Rosa Sullivan PA-C) Smoking packs per day: 0.5 Smoking cigarettes per day: 10.0 Years smoked: 16 Smoking pack-years: 8.00 Substance use: never Gender identity (if verbalized by the patient): Male Exam Narrative: GENERAL: Well-appearing, well-nourished, and in no acute distress. HEAD: Normocephalic, atraumatic. CHEST: Clear to auscultation. No respiratory distress. HEART: Regular rate and rhythm. Normal peripheral pulses. : Normal external genitalia without urethral discharge. Mild discomfort over the epididymis of the left testicle without swelling. No right-sided tenderness. Back: No reproducible midline or paraspinal muscular tenderness of the T/L-spine. EXTREMITIES: Normal range of motion. No edema. NEURO: Alert and oriented x3. PSYCH: Normal mood and affect. Course Course Emergency Course: Patient informed of results. No evidence of stone. Patient does have an epididymal cyst. Urine without infection. Discharged home Vital Signs Vital signs: Vital Signs Temperature 97.8 F 03/23/22 08:10 Pulse Rate 67 03/23/22 08:10 Respiratory Rate 16 03/23/22 08:10 Blood Pressure 118/78 03/23/22 08:10 Pulse Oximetry 97 03/23/22 08:10 Oxygen Delivery Room Air 03/23/22 08:10 Temperature 97.8 F 03/23/22 08:10 Pulse Rate 67 03/23/22 08:10 Respiratory Rate 16 03/23/22 08:10 Blood Pressure 123/56 L 03/23/22 13:16 Pulse Oximetry 100 03/23/22 13:16 Oxygen Delivery Room Air 03/23/22 08:10 Medical Decision Making Vital Signs Vital Signs: Vital Signs Temperature 97.8 F 03/23/22 08:10 Pulse Rate 67 03/23/22 08:10 Respiratory Rate 16 03/23/22 08:10 Blood Pressure 118/78 03/23/22 08:10 Pulse Oximetry 97 03/23/22 08:10 Oxygen Delivery Room Air 03/23/22 08:10 Temperature 97.8 F 03/23/22 08:10 Pulse Rate 67 03/23/22 08:10 Respiratory Rate 16 03/23/22 08:10 Blood Pressure 123/56 L 03/23/22 13:16 Pulse Oximetry 100 03/23/22 13:16 Oxygen Delivery Room Air 03/23/22 08:10 Lab Data Labs: Lab Results 03/23/22 Range/Units 09:18 Urine Color Yellow (Yellow) Urine Appearance Clear (Clear) Urine pH 7.5 (5.0-9.0) Ur Specific [place] 1.015 (1.001-1.035) Urine Protein Negative (Negative) mg/dL Urine Glucose (UA) Negative (Negative) mg/dL Urine Ketones Negative (Negative) mg/dL Ur Blood (Man) Trace-intact (Negative) Urine Nitrate Negative (Negative) Urine Bilirubin Negative
== END 2022-03-23 14:40 | disposition home or self-care (01) ==
PROVIDERS: Emergency Provider Emergency Medicine
DX: N50.3 Cyst of epididymis (principal); N50.812 Left testicular pain; M19.90 Unspecified osteoarthritis, unspecified site; K58.9 Irritable bowel syndrome, unspecified; F17.210 Nicotine dependence, cigarettes, uncomplicated; K80.20 Calculus of gallbladder without cholecystitis without obstruction
CPT/HCPCS: 74176; 76870; 81001; 93976; 99284; A9270

== ENCOUNTER 2022-03-26 17:32 | Emergency (ER) | payer OTHER, SELFPAY ==
--- NOTE | ~2022-03-26 | US_ITS ---
EXAMINATION: US scrotum doppler DATE: 03/26/2022 21:04 INDICATION: Worsening testicular pain and swelling TECHNIQUE: Testicular sonogram utilizing grayscale and Doppler COMPARISON: 03/23/2022 FINDINGS: The right testis measures 4.1 x 2.3 x 2.9 cm. The left testis measures cm. Symmetric normal grayscale appearance to both testes. Again seen are couple 1-2 mm echogenic foci in each testis likely represe nting calcification. There is normal vascular flow to both testes. The right epididymis is normal wit h normal vascular flow. Anechoic 6 mm left epididymal head cyst. The left epididymis is otherwise nor mal with normal vascular flow. There is no varicocele or hydrocele. IMPRESSION: 1. Incidental 6 mm left epididymal head cyst. Otherwise unremarkable scrotal ultrasound. Reviewed, dictated and finalized at location A. CUTTER IMPRESSION: 1. Incidental 6 mm left epididymal head cyst. Otherwise unremarkable scrotal u ltrasound.
[2022-03-26 18:06] VITALS: BP 119/71; PULSE 84; RESP 17; TEMP 36.7; O2SAT 98
--- NOTE | 2022-03-26 22:46 | ED.GENADULT ---
HPI - General Adult General Chief complaint: Urogenital-Male Stated complaint: testicular pain Time Seen by Provider: 03/26/22 22:29 History of Present Illness HPI narrative: 36-year-old male presented to the emergency department for evaluation of worsening left testicular pain. Patient states that he was evaluated on Saturday and was told he was having an epididymal cyst. Patient has not been taking anything for pain control at home blood present in the department for evaluation of worsening symptoms. Patient states he was concerned that maybe the cyst had increased in size but patient does also report increased tenderness. Patient states he has not been sexually active for the past 3 years. Related Data Home Medications Medication Instructions Recorded Confirmed No Home Medications 11/18/20 10/13/21 Allergies Allergy/AdvReac Type Severity Reaction Status Date / Time No Known Allergies Allergy Verified 10/13/21 13:03 Review of Systems Review of Systems: CONSTITUTIONAL: Denies fever, chills, or sweats. EYES: Denies visual changes, redness, or discharge. ENT: Denies rhinorrhea, congestion, sore throat, or otalgia. CARDIOVASCULAR: Denies chest pain, palpitations, or edema. RESPIRATORY: Denies cough or dyspnea. GASTROINTESTINAL: Denies abdominal pain, nausea, vomiting, or diarrhea. GENITOURINARY: See HPI SKIN: Denies rash or itching. MUSCULOSKELETAL: Denies back pain, joint pain, or myalgia. NEUROLOGIC: Denies headache, numbness, or weakness. COUNT INCLUDES THE [facility] Past Medical History Medical History (Updated 03/27/22 @ 00:01 by Abiola Crabtree) Arthritis DDD (degenerative disc disease), cervical IBS (irritable bowel syndrome) Surgical History Surgical History Hx of tonsillectomy Social History Social History (Updated 11/18/20 @ 10:52 by Rosa Sullivan PA-C) Smoking packs per day: 0.5 Smoking cigarettes per day: 10.0 Years smoked: 16 Smoking pack-years: 8.00 Substance use: never Gender identity (if verbalized by the patient): Male Exam Narrative: APPEARANCE: Well appearing, no pain, no distress, well-nourished. HEAD: normocephalic, atraumatic. EYES: PERRLA/EOMI, conjunctivae clear. NOSE: Normal no drainage NECK: Supple. No adenopathy, no masses. RESPIRATORY: Airway patent, respirations nonlabored. Clear to auscultation bilaterally, no rales, rhonchi, wheezing. CARDIOVASCULAR: Regular rate and rhythm without murmurs rubs or gallops. ABDOMINAL: Soft, nontender, nondistended, normal bowel sounds Genitourinary: Normal. Scrotum with no erythema or significant edema. Tenderness to left testicle with palpation. Testicle is not high riding. No tenderness of right testicle. No palpable hernia. MUSCULOSKELETAL: Moves all extremities. Strength/ROM intact NEURO: Alert. Cranial nerves II through XII intact. Grossly intact SKIN: Warm, dry. Normal Color Course Course Emergency Course: Differential diagnosis for patient's symptoms does include epididymal cyst, hydrocele, parous casino, torsion, epididymitis. Previous ultrasound on 03/23 did show an epididymal cyst. Testicular ultrasound was reordered to rule out torsion and once again did show a 6 mm left epididymal cyst without evidence of torsion. UA and urine GC chlamydia was ordered. Low concern for STI due to patient saying he has been abstaining from sex for the last 3 years. Patient was advised to take Tylenol or ibuprofen for pain control and patient was provided urology follow-up. Vital Signs Vital signs: Vital Signs Temperature 98.1 F 03/26/22 18:06 Pulse Rate 84 03/26/22 18:06 Respiratory Rate 17 03/26/22 18:06 Blood Pressure 119/71 03/26/22 18:06 Pulse Oximetry 98 03/26/22 18:06 Temperature 98.1 F 03/26/22 18:06 Pulse Rate 84 03/26/22 18:06 Respiratory Rate 17 03/26/22 18:06 Blood Pressure 119/71 03/26/22 18:06 Pulse Oximetry 98 03/26/22 18:06
[2022-03-26 23:01] LABS: Appearance Urine Clear (Clear); Bilirubin Urine Negative (Negative); Blood Urine 1+ (Negative); Color Urine Yellow (Yellow); Glucose Urine UA Negative (Negative); Ketones Urine Negative (Negative); Leukocyte Esterase Ur Negative LEU/UL (Negative); Nitrate Urine Negative (Negative); Protein Urine Trace mg/dL (Negative); Specific Grav Ur >= 1.030 (1.001-1.035); Urobilinogen Urine 0.2 mg/dL (<2.0)
[2022-03-26 23:03] LABS: Add Urine Microscopic? YES; Mucus Urine Heavy /lpf; Squamous Epithelial Cell Urine Rare /hpf (Few); WBC Urine 0-3 /hpf
[2022-03-26] MEDS: KETOROLAC 30 MG/ML VIAL (*BKC) IM (23:05)
== END 2022-03-26 23:28 | disposition home or self-care (01) ==
PROVIDERS: Emergency Provider Emergency Medicine
DX: N50.3 Cyst of epididymis (principal); R31.9 Hematuria, unspecified; M19.90 Unspecified osteoarthritis, unspecified site; K58.9 Irritable bowel syndrome, unspecified; F17.210 Nicotine dependence, cigarettes, uncomplicated
CPT/HCPCS: 76870; 81001; 87491; 87591; 93976; 96372; 99284; J1885

== ENCOUNTER 2022-08-03 08:03 | Emergency (ER) | payer SELFPAY ==
[2022-08-03 08:13] VITALS: BP 117/70; PULSE 78; RESP 16; TEMP 37.2; O2SAT 99
--- NOTE | 2022-08-03 08:36 | ED.URI ---
HPI - URI/Sore Throat General Chief Complaint: Upper Respiratory Infection Stated Complaint: Headache/Neck/Sore Throat Time Seen by Provider: 08/03/22 08:22 Source: patient and RN notes reviewed Mode of arrival: ambulatory Limitations: no limitations History of Present Illness HPI Narrative: Patient presents today complaining of a 2 day history of sore throat, headache, body aches, cough, nasal congestion, nausea related to migraine. Denies fever, rhinorrhea, shortness of breath, ear pain. History of migraines. Patient has been taking powdered aspirin packets with some relief of his headache. Currently rates his pain 06/27. Related Data Allergies Allergy/AdvReac Type Severity Reaction Status Date / Time No Known Allergies Allergy Verified 08/03/22 08:13 Review of Systems Review of Systems: CONSTITUTIONAL: Denies fever, chills, or sweats.+ body aches EYES: Denies visual changes, redness, or discharge. ENT: Denies rhinorrhea, or otalgia.+ congestion, sore throat CARDIOVASCULAR: Denies chest pain, palpitations, or edema. RESPIRATORY: Denies dyspnea.+ cough GASTROINTESTINAL: Denies abdominal pain, vomiting, or diarrhea.+ nausea GENITOURINARY: Denies dysuria or hematuria. SKIN: Denies rash, itching, or wounds. MUSCULOSKELETAL: Denies back pain, joint pain, or myalgia. NEUROLOGIC: Denies numbness, tingling, or weakness.+ headache PSYCH: Denies depression or anxiety. [facility] Past Medical History Medical History (Updated 08/03/22 @ 08:41 by Margaret Wong, ELLIE, ) Arthritis DDD (degenerative disc disease), cervical IBS (irritable bowel syndrome) Migraine Surgical History Surgical History Hx of tonsillectomy Social History Social History Smoking packs per day: 0.5 Smoking cigarettes per day: 10.0 Years smoked: 16 Smoking pack-years: 8.00 Substance use: never Gender identity (if verbalized by the patient): Male Comments At time of signature, I have reviewed and agree with nursing past medical, surgical, social and family history unless otherwise noted. Please see nursing chart for further information. There is no relevant family history pertinent to the presenting complaint Exam Narrative: GENERAL: Well-appearing, well-nourished, and in no acute distress. HEAD: Normocephalic, atraumatic. EYES: EOMI. PERRL. No redness or drainage. Conjunctivae normal. ENT: Mucous membranes pink and moist. Nares mildly congested. No rhinorrhea. TMs normal bilaterally. Throat mildly erythematous without edema or exudate. Uvula midline. NECK: Normal AROM. Supple. No lymphadenopathy. CHEST: No respiratory distress. Clear to auscultation. HEART: Regular rate and rhythm. No murmur appreciated. Normal peripheral pulses. EXTREMITIES: Normal range of motion. No edema. SKIN: Warm, dry, no rash. Capillary refill normal. Normal skin turgor. NEURO: No focal deficits. Alert and oriented x3. Gait steady. PSYCH: Normal affect. No signs of depression or anxiety. Course Course Level of Care: Express Care Visit Vital Signs Vital signs: Vital Signs Temperature 99.0 F 08/03/22 08:13 Pulse Rate 78 08/03/22 08:13 Respiratory Rate 16 08/03/22 08:13 Blood Pressure 117/70 08/03/22 08:13 Pulse Oximetry 99 08/03/22 08:13 Oxygen Delivery Room Air 08/03/22 08:13 Temperature 99.0 F 08/03/22 08:13 Pulse Rate 78 08/03/22 08:13 Respiratory Rate 16 08/03/22 08:13 Blood Pressure 117/70 08/03/22 08:13 Pulse Oximetry 99 08/03/22 08:13 Oxygen Delivery Room Air 08/03/22 08:13 Reviewed MDM - URI/Sore Throat MDM Narrative Medical decision making narrative: Rapid strep negative. Culture pending. Symptoms likely viral in etiology. Will prescribe Zofran for nausea. Anticipatory guidance given. Differential Diagnosis Differential diagnosis: Likely upper r
== END 2022-08-03 08:45 | disposition home or self-care (01) ==
PROVIDERS: Emergency Provider Nurse Practitioner
DX: J06.9 Acute upper respiratory infection, unspecified (principal); F17.210 Nicotine dependence, cigarettes, uncomplicated
CPT/HCPCS: 87081; 87880; 99213; G0463

== ENCOUNTER 2022-08-18 19:49 | Emergency (ER) | payer SELFPAY ==
--- NOTE | ~2022-08-18 | XR_ITS ---
EXAMINATION: XR chest 2V DATE: 08/18/2022 20:19 INDICATION: Chest pain and shortness of breath TECHNIQUE: frontal and lateral views of the chest were obtained. COMPARISON: Chest radiograph dated 02/14/2019 FINDINGS: The lungs remain clear with no focal airspace opacities, pulmonary edema, pleural effusion or pneumot horax. The cardiomediastinal silhouette is normal. Visualized bones and soft tissues are unremarkable . IMPRESSION: 1. No acute cardiopulmonary disease. Reviewed, dictated and finalized at location A.
--- NOTE | 2022-08-18 19:51 | ECG_ITS ---
Measurements Intervals [place] Rate: 90 P: 42 AK: 146 QRS: 53 QRSD: 92 T: 45 QT: 338 QTc: 414 Interpretive Statements SINUS RHYTHM NORMAL ECG COMPARED TO ECG 06/18/2019 00:04:39 NO SIGNIFICANT CHANGES Electronically Signed On 08-19-2022 8:45:38 CDT by Dexter Mitchell D.O.
[2022-08-18 20:00] VITALS: BP 106/62; PULSE 85; RESP 18; TEMP 36.6; O2SAT 98
[2022-08-18 20:01] LABS: Basophils Absolute Auto 0.1 K/mm3 (0.0-0.1); Basophils Percent Auto 0.9 % (0.2-1.2); Eosinophils Absolute Auto 0.1 K/mm3 (0-0.3); Eosinophils Percent Auto 1.2 % (0-4.4); Hemoglobin 15.3 g/dL (14.0-18.0); Immature Granulocyte Absolute 0.01 K/mm3 (0.00-0.031); Immature Granulocyte Percent A 0.2 % (0-0.5); Lymphocytes Absolute Auto 2.37 K/mm3 (0.9-3.2); Lymphocytes Percent Auto 36.5 % (18.3-44.2); Mean Corpuscular HGB Conc 34.8 g/dl (32-36); Mean Corpuscular Volume 92.1 fl (80-100); Mean Platelet Volume 10.3 fl (7.4-10.4); Monocytes Absolute Auto 0.4 K/mm3 (0.1-0.6); Monocytes Percent Auto 5.5 % (2.6-8.5); Neutrophils Absolute Auto 3.6 K/mm3 (1.3-6.7); Neutrophils Percent Auto 55.7 % (45.5-73.1); Platelet Count Result 259 k/mm3 (150-375); Red Blood Count 4.78 M/mm3 (4.6-6.20); Red Cell Distribution Width 12.6 % (11.5-14.5); White Blood Count 6.5 K/mm3 (4.5-10.0)
[2022-08-18 20:11] LABS: Alanine Aminotransferase 23 U/L (6-50); Albumin Level 4.5 g/dL (3.5-5.1); Alkaline Phosphatase 74 U/L (38-126); Anion Gap 9 mmol/L (8-16); Aspartate Amino Transferase 27 U/L (17-59); Bilirubin,Total 1.9 mg/dL (0.2-1.3); Blood Urea Nitrogen 12 mg/dL (9-20); Calcium 9.9 mg/dL (8.4-10.2); Carbon Dioxide 22 mmol/L (22-30); Chloride 107 mmol/L (98-107); Estimated Glomerular Filt Rate > 60; Glucose 104 mg/dL (65-110); Lipase 48 U/L (23-300); Potassium 3.6 mmol/L (3.4-5.0); Sodium 138 mmol/L (137-145)
[2022-08-18 20:12] LABS: Partial Thromboplastin Time 30.1 SECONDS (22.3-36.8); Prothrombin Time 13.6 Seconds (11.1-14.7)
[2022-08-18 20:23] LABS: Troponin I < 0.012 ng/mL (0.000-0.034)
[2022-08-18 21:40] VITALS: BP 114/71; PULSE 79; RESP 15; O2SAT 99
--- NOTE | 2022-08-18 22:34 | ED.CHESTPAIN ---
HPI - Chest Pain General Chief Complaint: Chest Pain <XIOMARA Lucia Last Filed: 08/18/22 22:43> Stated Complaint: SOB, CP <XIOMARA Lucia Last Filed: 08/18/22 22:43> Time Seen by Provider: 08/18/22 21:27 <XIOMARA Lucia Last Filed: 08/18/22 22:43> Source: patient <XIOMARA Lucia Last Filed: 08/18/22 22:43> Mode of arrival: ambulatory <XIOMARA Lucia Last Filed: 08/18/22 22:43> Limitations: no limitations <XIOMARA Lucia Last Filed: 08/18/22 22:43> History of Present Illness HPI narrative: This is a 36-year-old male that presents to the emergency department for an episode of chest pain. Reports he was walking when he noted a dull pain on the right side of his chest. This was associated with some difficulty breathing. He called EMS and was evaluated. He was given a couple doses of nitroglycerin without change in his pain. Reports his pain was relieved about after an hour or so. He is not having any current symptoms. Denies fever, cough, or lower extremity edema. <Rosa Sullivan PA-C - Last Filed: 08/18/22 22:43> Related Data Allergies/Adverse Reactions: Allergies Allergy/AdvReac Type Severity Reaction Status Date / Time No Known Allergies Allergy Verified 08/19/22 14:46 <XIOMARA Lucia Last Filed: 08/18/22 22:43> Review of Systems Review of Systems: CONSTITUTIONAL: Denies fever CARDIOVASCULAR: Reports chest pain. Denies palpitations, or edema. RESPIRATORY: Reports dyspnea. Denies cough GASTROINTESTINAL: Denies abdominal pain, nausea, vomiting <XIOMARA Lucia Last Filed: 08/18/22 22:43> All systems reviewed & are unremarkable except as noted in HPI and below <XIOMARA Lucia Last Filed: 08/18/22 22:43> [facility] Past Medical History Medical History: Medical History (Updated 08/20/22 @ 00:01 by Abiola Crabtree) Arthritis DDD (degenerative disc disease), cervical IBS (irritable bowel syndrome) Migraine <Rosa Sullivan PA-C - Last Filed: 08/18/22 22:43> Surgical History Surgical History: Surgical History Hx of tonsillectomy <Rosa Sullivan PA-C - Last Filed: 08/18/22 22:43> Social History Social History: Social History Smoking packs per day: 0.5 Smoking cigarettes per day: 10.0 Years smoked: 16 Smoking pack-years: 8.00 Substance use: never Gender identity (if verbalized by the patient): Male <Rosa Sullivan PA-C - Last Filed: 08/18/22 22:43> Exam Narrative: GENERAL: Well-appearing, well-nourished, and in no acute distress. HEAD: Normocephalic, atraumatic. EYES: EOMI. CHEST: Clear to auscultation. No respiratory distress. No wheezes rales or rhonchi HEART: Regular rate and rhythm. No murmur heard. Normal peripheral pulses. EXTREMITIES: Normal range of motion. No edema. SKIN: Warm, dry, no rash. NEURO: No focal deficits. Alert and oriented x3. PSYCH: Normal mood and affect <Rosa Sullivan PA-C - Last Filed: 08/18/22 22:43> Course Course Emergency Course: Patient with relief in pain. He does not wish to stay for any further evaluation <Rosa Sullivan PA-C - Last Filed: 08/18/22 22:43> NURSING SERVICE DIRECTOR/PA Physician Supervision This is a was performed by both a physician and an APC. I performed all aspects of the MDM as documented w/ the following additions: 36-year-old presenting with chest pain. His symptoms improved and he left before getting a 2nd troponin. Patient given return precautions. All questions answered. Patient in agreement w/ disposition. <Ethan Walters MD - Last Filed: 08/20/22 20:03> Vital Signs Vital signs: Vital Signs Temperature 97.8 F 08/18/22 20:00 Pulse Rate 85 08/18/22 20:00 Respiratory Rate 18 08/18/22 20:00 Blood Pressure 106/62 08/18/22 20:00
== END 2022-08-18 22:51 | disposition home or self-care (01) ==
PROVIDERS: Emergency Medicine; Emergency Provider Physician Assistant
DX: R07.9 Chest pain, unspecified (principal); M19.90 Unspecified osteoarthritis, unspecified site; K58.9 Irritable bowel syndrome, unspecified; F17.210 Nicotine dependence, cigarettes, uncomplicated
CPT/HCPCS: 36415; 71046; 80053; 83690; 84484; 85025; 85610; 85730; 93005; 99284

== ENCOUNTER 2022-08-19 14:40 | Emergency (ER) | payer SELFPAY ==
[2022-08-19 14:49] VITALS: BP 110/80; PULSE 102; RESP 16; TEMP 37.2; O2SAT 99
--- NOTE | 2022-08-19 14:50 | ED.SKABFB ---
HPI - Skin/Abscess/Foreign Bdy General Chief complaint: Skin/Abscess/Foreign Body Stated complaint: left arm irritation Time Seen by Provider: 08/19/22 14:50 Source: patient Mode of arrival: ambulatory Limitations: no limitations History of Present Illness HPI narrative: 36-year-old male presents with itchy rash to left upper extremity that started several hours ago. Patient denies use of any new products. Denies doing any recent your work. Patient was at ER yesterday and this is where adhesive tape was placed for his IV. Patient states that his mom told him that he has shingles. All systems reviewed and negative except as noted above. Related Data Allergies Allergy/AdvReac Type Severity Reaction Status Date / Time No Known Allergies Allergy Verified 08/19/22 14:46 Review of Systems Review of Systems: CONSTITUTIONAL: Denies fever, chills, or sweats. EYES: Denies visual changes, redness, or discharge. ENT: Denies rhinorrhea, congestion, sore throat, or otalgia. CARDIOVASCULAR: Denies chest pain, palpitations, or edema. RESPIRATORY: Denies cough or dyspnea. GASTROINTESTINAL: Denies abdominal pain, nausea, vomiting, or diarrhea. GENITOURINARY: Denies dysuria or hematuria. SKIN: Reports itchy rash to left upper extremity. MUSCULOSKELETAL: Denies back pain, joint pain, or myalgia. NEUROLOGIC: Denies headache, numbness, or weakness. PSYCHIATRIC: Denies anxiety or depression. All other systems reviewed are negative, except as documented in HPI. [facility] Past Medical History Medical History (Updated 08/19/22 @ 14:55 by Candis Montgomery NP) Arthritis DDD (degenerative disc disease), cervical IBS (irritable bowel syndrome) Migraine Surgical History Surgical History Hx of tonsillectomy Social History Social History Smoking packs per day: 0.5 Smoking cigarettes per day: 10.0 Years smoked: 16 Smoking pack-years: 8.00 Substance use: never Gender identity (if verbalized by the patient): Male Comments At time of signature, agree with nursing past medical, surgical, social and family history. There is no relevant family history pertinent to the presenting complaint. Exam Narrative: GENERAL: This is a well-nourished, well-developed patient, in no apparent distress. HEAD: normocephalic, atraumatic. EYES: PERRL. Sclera clear/white. Vision is grossly intact. EARS: External ears normal NOSE: External nose normal NECK: Neck supple, non-tender without lymphadenopathy, masses or thyromegaly. CARDIOVASCULAR: Regular rate and rhythm without murmurs, gallops, or rubs. RESPIRATORY: Clear to auscultation. Breath sounds equal bilaterally. No wheezes, rales, or rhonchi. SKIN: warm, Dry, intact, good texture and turgor. Erythematous fine papular rash to left antecubital area. NEURO: awake, alert, and oriented to person, place and time. There were no obvious focal neurologic abnormalities. EXTREMITIES: No joint tenderness, effusion, or edema noted. Course Course Level of Care: Express Care Visit Vital Signs Vital signs: Reviewed MDM - Skin/Abscess/Foreign Bdy MDM Narrative Medical decision making narrative: Patient is aware of diagnosis, understands and agrees to treatment plan. Anticipatory guidance given. Patient agrees to follow-up as directed and is aware of reasons to seek care at the emergency department. Portions of this record may have been created with voice recognition software Differential Diagnosis Differential diagnosis: Likely contact dermatitis Discharge Plan Discharge Clinical Impression: Contact dermatitis due to adhesive bandage Patient Disposition: Home, Self-Care Condition: Stable Instructions: Contact Dermatitis (ED) Additional Instructions: take medications as prescribed. Do not drive while taking hydroxyzine, this medica
== END 2022-08-19 15:00 | disposition home or self-care (01) ==
PROVIDERS: Emergency Provider Nurse Practitioner Family
DX: L23.1 Allergic contact dermatitis due to adhesives (principal); F17.210 Nicotine dependence, cigarettes, uncomplicated; M19.90 Unspecified osteoarthritis, unspecified site
CPT/HCPCS: 99213; G0463

== ENCOUNTER 2022-12-22 22:07 | Emergency (ER) | payer MEDICAID, SELFPAY ==
--- NOTE | 2022-12-22 | ECG_ITS ---
Measurements Intervals [place] Rate: 73 P: 44 MT: 137 QRS: 56 QRSD: 90 T: 44 QT: 358 QTc: 397 Interpretive Statements SINUS RHYTHM WITH SINUS ARRHYTHMIA NORMAL ECG COMPARED TO ECG 08/18/2022 19:56:55 SINUS ARRHYTHMIA NOW PRESENT Electronically Signed On 12-23-2022 6:47:26 ASH COLLECTOR by Dexter Mitchell D.O.
--- NOTE | ~2022-12-22 | XR_ITS ---
EXAMINATION: XR chest 2V DATE: 12/22/2022 22:38 INDICATION: Chest pain TECHNIQUE: Frontal and lateral views of the chest are obtained COMPARISON: 08/18/2022 FINDINGS: The lungs are free of acute opacities. No pleural effusion or pneumothorax. The cardiomedia stinal silhouette is normal. The visualized bones and soft tissues are unremarkable. IMPRESSION: 1. No acute cardiopulmonary abnormality. Reviewed, dictated and finalized at location F. RAL SCHEDULER
[2022-12-22 22:06] VITALS: BP 117/75; PULSE 74; RESP 13; TEMP 36.8; O2SAT 98
--- NOTE | 2022-12-22 22:15 | ED.CHESTPAIN ---
HPI - Chest Pain General Chief Complaint: Chest Pain Stated Complaint: chest pain Time Seen by Provider: 12/22/22 22:11 Source: patient Mode of arrival: EMS Limitations: no limitations History of Present Illness HPI narrative: This is a 37 year old male that presents to the ER for an episode of shortness of breath. Reports he was seated and started to feel like he was having difficulty breathing. Reports associated chest pain and tingling in his hands. Also reports a headache. Denies vision changes, vomiting, numbness or weakness. Related Data Allergies Allergy/AdvReac Type Severity Reaction Status Date / Time No Known Allergies Allergy Verified 08/19/22 14:46 Review of Systems Review of Systems: CONSTITUTIONAL: Denies fever EYES: Denies visual changes CARDIOVASCULAR: Reports chest pain. Denies edema. RESPIRATORY: Reports dyspnea. GASTROINTESTINAL: Denies vomiting MUSCULOSKELETAL: Reports joint pain, and myalgia. NEUROLOGIC: Reports headache. Denies numbness, or weakness. All systems reviewed & are unremarkable except as noted in HPI and below PMFSH Past Medical History Medical History (Updated 12/23/22 @ 01:57 CDT by Rosa Sullivan PA-C) Arthritis DDD (degenerative disc disease), cervical IBS (irritable bowel syndrome) Migraine Surgical History Surgical History Hx of tonsillectomy Social History Social History Smoking packs per day: 0.5 Smoking cigarettes per day: 10.0 Years smoked: 16 Smoking pack-years: 8.00 Substance use: never Gender identity (if verbalized by the patient): Male Exam Narrative: GENERAL: Well-appearing, well-nourished, and in no acute distress. HEAD: Normocephalic, atraumatic. EYES: EOMI. NECK: Supple. No adenopathy or masses. No JVD CHEST: No respiratory distress. Mild expiratory wheezing. No rales or rhonchi HEART: Regular rate and rhythm. No murmur heard. Normal peripheral pulses. EXTREMITIES: Normal range of motion. No edema. SKIN: Warm, dry, no rash. NEURO: No focal deficits. Alert and oriented x3. PSYCH: Normal mood and affect Course Course Emergency Course: Patient resting comfortably. Informed of results. Lungs are clear after nebulizer treatment. Reports feeling better. Ready for discharge home Vital Signs Vital signs: Vital Signs Temperature 98.3 F 12/22/22 22:06 Pulse Rate 74 12/22/22 22:06 Respiratory Rate 13 12/22/22 22:06 Blood Pressure 117/75 12/22/22 22:06 Pulse Oximetry 98 12/22/22 22:06 Oxygen Delivery Room Air 12/22/22 22:06 Temperature 98.3 F 12/22/22 22:06 Pulse Rate 53 L 12/23/22 01:27 SQL ARCHITECT Respiratory Rate 17 12/23/22 01:27 SQL ARCHITECT Blood Pressure 94/68 L 12/23/22 01:33 SQL ARCHITECT Pulse Oximetry 97 12/23/22 01:27 SQL ARCHITECT Oxygen Delivery Room Air 12/22/22 22:16 MDM - Chest Pain MDM Narrative Medical decision making narrative: Patient presents to the emergency department for an episode of shortness of breath. He did have mild wheezing on arrival. This cleared after nebulizer treatment. Also was reporting a headache and some chest discomfort. This was relieved with Tylenol, Reglan and Benadryl. He is afebrile and nontoxic-appearing. CBC and metabolic panel without concerning findings. EKG without acute ST changes and his baseline and 3-hour troponin are negative. Chest x-ray without acute cardiopulmonary abnormality. Patient resting comfortably. Informed of results. His heart score is 0. Reports feeling better. Ready for discharge home. He is to follow-up with primary provider. He was given warnings to return to the ER Differential Diagnosis Differential diagnosis: Likely stable angina, atypical chest pain, costochondritis and other (COPD, electrolyte derangement, dehydration, headache, pneumonia) Lab Data Attestation: I reviewed the patient's lab results. 12/22/22
[2022-12-22 22:16] VITALS: PULSE 74; O2SAT 98
[2022-12-22 22:18] LABS: Basophils Absolute Auto 0.1 K/mm3 (0.0-0.1); Basophils Percent Auto 1.1 % (0.2-1.2); Eosinophils Absolute Auto 0.2 K/mm3 (0-0.3); Eosinophils Percent Auto 2.8 % (0-4.4); Hematocrit 42.1 % (42.0-52.0); Hemoglobin 14.1 g/dL (14.0-18.0); Immature Granulocyte Absolute 0.01 K/mm3 (0.00-0.031); Immature Granulocyte Percent A 0.2 % (0-0.5); Lymphocytes Absolute Auto 2.12 K/mm3 (0.9-3.2); Lymphocytes Percent Auto 39.4 % (18.3-44.2); Mean Corpuscular HGB Conc 33.5 g/dl (32-36); Mean Corpuscular Hemoglobin 30.9 pg (26-34); Mean Corpuscular Volume 92.1 fl (80-100); Mean Platelet Volume 10.5 fl (7.4-10.4); Monocytes Absolute Auto 0.4 K/mm3 (0.1-0.6); Monocytes Percent Auto 7.2 % (2.6-8.5); Neutrophils Absolute Auto 2.7 K/mm3 (1.3-6.7); Neutrophils Percent Auto 49.3 % (45.5-73.1); Platelet Count Result 226 k/mm3 (150-375); Red Blood Count 4.57 M/mm3 (4.6-6.20); Red Cell Distribution Width 13.1 % (11.5-14.5); White Blood Count 5.4 K/mm3 (4.5-10.0)
[2022-12-22 22:27] LABS: Alanine Aminotransferase 18 U/L (6-50); Albumin Level 4.4 g/dL (3.5-5.1); Alkaline Phosphatase 70 U/L (38-126); Anion Gap 8 mmol/L (8-16); Aspartate Amino Transferase 29 U/L (17-59); Bilirubin,Total 1.2 mg/dL (0.2-1.3); Blood Urea Nitrogen 10 mg/dL (9-20); Calcium 9.4 mg/dL (8.4-10.2); Carbon Dioxide 24 mmol/L (22-30); Chloride 106 mmol/L (98-107); Estimated CRCL calculation 109 ml/min; Estimated Glomerular Filt Rate > 60; Glucose 110 mg/dL (65-110); Lipase 50 U/L (23-300); Potassium 3.4 mmol/L (3.4-5.0); Sodium 138 mmol/L (137-145)
[2022-12-22 22:28] LABS: Prothrombin Time 13.3 Seconds (11.1-14.7)
[2022-12-22 22:29] LABS: Partial Thromboplastin Time 31.3 SECONDS (22.3-36.8)
[2022-12-22 22:38] LABS: Troponin I < 0.012 ng/mL (0.000-0.034)
[2022-12-22] MEDS: ALBUTEROL SULFATE NEB 2.5 MG/3 ML INH INHALATION (23:07)
[2022-12-22] MEDS: IPRATROPIUM BR 0.02% INH SOLN 0.5 MG/2.5 ML VIAL INHALATION (23:07)
[2022-12-22 23:08] VITALS: PULSE 75; RESP 18
--- NOTE | 2022-12-22 23:14 | PC.NURSE ---
pt care and report given to kar Araiza. all questions answered.
[2022-12-22] MEDS: ACETAMINOPHEN 500 MG TABLET 1000 MG PO (23:15)
[2022-12-22 23:16] VITALS: PULSE 70; RESP 18
[2022-12-22] MEDS: METOCLOPRAMIDE HCL INJ 10 MG/2 ML VIAL IV PUSH (23:16)
[2022-12-22] MEDS: diphenhydrAMINE HCl INJ 50 MG/ML VIAL 25 MG IV PUSH (23:16)
[2022-12-22] MEDS: SODIUM CHLORIDE 0.9% IV 1,000 ML 999 ML IV CONT (23:16)
[2022-12-23 00:03] VITALS: BP 90/56; PULSE 60; RESP 15; O2SAT 98
[2022-12-23] MEDS: SODIUM CHLORIDE 0.9% IV 1,000 ML 999 ML IV CONT (00:59)
[2022-12-23 01:22] VITALS: BP 87/50; PULSE 52; RESP 15; O2SAT 99
[2022-12-23 01:27] VITALS: PULSE 53; RESP 17; O2SAT 97
[2022-12-23 01:33] VITALS: BP 94/68
[2022-12-23 01:49] LABS: Troponin I < 0.012 ng/mL (0.000-0.034)
== END 2022-12-23 01:36 | disposition home or self-care (01) ==
PROVIDERS: Student in an Organized Health Care Education/Training Program; Emergency Provider Physician Assistant
DX: M19.90 Unspecified osteoarthritis, unspecified site (principal); R07.89 Other chest pain; K58.9 Irritable bowel syndrome, unspecified; F17.210 Nicotine dependence, cigarettes, uncomplicated
CPT/HCPCS: 36415; 71046; 80053; 83690; 84484; 85025; 85610; 85730; 93005; 94640; 96361; 96374; 96375; 99284; A9270; J1200; J2765; J7030

== ENCOUNTER 2024-05-13 08:09 | Emergency (ER) | payer SELFPAY ==
--- NOTE | 2024-05-13 08:10 | ED.URI ---
HPI - URI/Sore Throat General Chief Complaint: Upper Respiratory Infection Stated Complaint: weak,bodyaches,painful throat work note Time Seen by Provider: 05/13/24 08:10 Source: patient Mode of arrival: ambulatory Limitations: no limitations History of Present Illness HPI Narrative: Ced is a 38 year old male patient presenting to the clinic today with c/o weakness, headache, nasal congestion, body aches, and sore throat x 2 days He reports no known fever or chills. Denies any chest pain or shortness of breath. MD elicited complaint: sore throat and nasal congestion Related Data Allergies Allergy/AdvReac Type Severity Reaction Status Date / Time No Known Allergies Allergy Verified 05/13/24 08:27 Review of Systems Review of Systems: Pertinent positives per HPI. Patient denies any fever, chills, rash, visual changes, dizziness, cough, shortness of breath, chest pain, palpitations, nausea, vomiting, diarrhea, constipation, abdominal pain, or any urinary issues. [facility] Past Medical History Medical History Migraine DDD (degenerative disc disease), cervical Arthritis IBS (irritable bowel syndrome) Surgical History Surgical History Hx of tonsillectomy Social History Social History Smoking packs per day: 0.5 Smoking cigarettes per day: 10.0 Years smoked: 16 Smoking pack-years: 8.00 Substance use: never Gender identity (if verbalized by the patient): Male Comments At the time of my signature, I reviewed and agree with the nursing past medical, surgical, social, and family history. There is no relevant family history pertinent to the patient complaint. Exam Narrative: General: Well-developed, well nourished, in no apparent distress Head: Normocephalic, atraumatic Eyes: Pupils equally round and reactive to light bilaterally, EOM intact, sclera and conjunctive clear, no discharge, lids normal Ears: TMs intact and clear, ear canals clear, no drainage, grossly hearing normal. Nose: Nares patent, clear nasal discharge, no inflammation, no sinus tenderness. Mouth: Oral pharynx without lesions or masses, good dentition, MMM. Neck: Supple, trachea midline, no enlargement of anterior or posterior cervical nodes, no thyroid masses or goiter palpable. Cardio: Regular rate and rhythm, s1 and s2 normal, no murmur appreciated. Resp: Clear to auscultation bilaterally, no rhonchi, rales, wheezing or rubs Course Course Emergency Course: Portions of this record may have been created with voice recognition software. Level of Care: Express Care Visit Vital Signs Vital signs: Vital Signs Temperature 35.9 C L 05/13/24 08:18 Pulse Rate 75 05/13/24 08:18 Respiratory Rate 16 05/13/24 08:18 Blood Pressure 120/75 05/13/24 08:18 Pulse Oximetry 99 05/13/24 08:18 Oxygen Delivery Room Air 05/13/24 08:18 Temperature 35.9 C L 05/13/24 08:18 Pulse Rate 75 05/13/24 08:18 Respiratory Rate 16 05/13/24 08:18 Blood Pressure 120/75 05/13/24 08:18 Pulse Oximetry 99 05/13/24 08:18 Oxygen Delivery Room Air 05/13/24 08:18 Vital signs reviewed MDM - URI/Sore Throat MDM Narrative Medical decision making narrative: At the time of visit patient is resting comfortably on the exam table. Patient appears to be nontoxic. Labs: COVID, influenza, and strep test were all performed. All testing was negative. We will send strep for culture. Plan: I suspect patient has URI/pharyngitis/viral syndrome. Supportive measures were discussed with the patient and they voiced understanding discharge instructions and agrees to treatment plan. Return precautions reviewed Differential Diagnosis Differential diagnosis: Likely upper respiratory infection, otitis media, sinusitis, viral infection, bronchitis, influenza, pharyngitis and other (COVID) Lab Data Labs: Lab Results 05/13/24 05/13/24 Range/Units 08:35 08:36 POC Influenza A Ag Negative (Negative) POC Influenza B Ag Negative (Negative) POC SARS CoV-2 Ag Negative (Negative) POC Grp A Strep Screen Negative (Negative) Discharge Plan Discharge Clinical Impression: Viral infection Upper respiratory infection Qualifiers: URI type: unspecified URI Qualified Code(s): J06.9 - Acute upper respiratory infection, unspecified Pharyngitis Qualifiers: Pharyngitis/tonsillitis etiology: unspecified etiology Qualified Code(s): J02.9 - Acute pharyngitis, unspecified Patient Disposition: Home, Self-Care Condition: Stable Instructions: Antibiotic Form, Pharyngitis (ED), Viral Syndrome (ED), Cold Symptoms (ED) Additional Instructions: Strep test was negative in the clinic today. We will send for culture. COVID and influenza testing was also negative. May take DayQuil/NyQuil for cold/flu symptoms Increase fluids and stay well hydrated Tylenol/motrin for pain/fever Flonase and OTC antihistamines as directed Vicks vapor rub to open sinuses Sinus rinses for congestion Cepacol spray, cough drops, throat lozenges, warm tea with honey/lemon, gargle salt water to soothe throat BRAT diet for diarrhea Clear liquids x 24 hours then advance as tolerated for nausea/vomiting Go to the ED if you develop a worsening in your condition- high fever not controlled by Tylenol or Motrin, dehydration, weakness, lethargy, shortness of breath, or chest pain. Follow up with your PCP in 3-5 days if symptoms persist. Patient Language: [place] Follow-up/Referrals: PHYSICIAN,SPORTS DEVELOPMENT OFFICER [Primary Care Provider] - Stand Alone Forms: Work/School Release IP Time of Disposition: 08:30 Quality NIHSS Nursing Documentation ED NIHSS nursing documentation: reviewed/agree
[2024-05-13 08:18] VITALS: BP 120/75; PULSE 75; RESP 16; TEMP 35.9; O2SAT 99
[2024-05-13 08:39] LABS: EDCOVIDSCREEN Negative (Negative)
[2024-05-13 08:39] LABS: EDINFLUASCREEN Negative (Negative); EDINFLUBSCREEN Negative (Negative)
[2024-05-13 08:40] LABS: EDSTREPNEGPOS1 Negative (Negative)
== END 2024-05-13 08:43 | disposition home or self-care (01) ==
PROVIDERS: Emergency Provider Nurse Practitioner Family
DX: B34.9 Viral infection, unspecified (principal); J06.9 Acute upper respiratory infection, unspecified; J02.9 Acute pharyngitis, unspecified; Z20.822 Contact with and (suspected) exposure to COVID-19; F17.210 Nicotine dependence, cigarettes, uncomplicated; M19.90 Unspecified osteoarthritis, unspecified site; M50.30 Other cervical disc degeneration, unspecified cervical region
CPT/HCPCS: 87081; 87426; 87804; 87880; 99213; G0463

== ENCOUNTER 2025-01-01 16:43 | Emergency (ER) | payer SELFPAY ==
[2025-01-01 16:45] VITALS: BP 143/96; PULSE 97; RESP 18; TEMP 36.4; O2SAT 100
[2025-01-01 17:03] VITALS: BP 138/101; PULSE 85; RESP 16; O2SAT 98
--- NOTE | 2025-01-01 17:50 | ED.EYEPROB ---
HPI - Eye Problem General Chief complaint: Eye Problems Stated complaint: itchy eyes couple days, 2 lumps on back of neck Time Seen by Provider: 01/01/25 17:09 History of Present Illness HPI Narrative: Patient is a 39-year-old male who presents to the ER with complaints of two lumps to his posterior neck. He reports he 1st noticed the lumps yesterday. Today he endorses significant fatigue, headache, nausea, bilateral eye itching, and welts to his left hip, left knee, and left finger. Patient denies any sore throat, recent fevers, or shortness of breath. He endorses a history of a tonsillectomy but denies any other medical history relevant to this ER visit. Patient also endorses an intermittent dry cough. Related Data Allergies Allergy/AdvReac Type Severity Reaction Status Date / Time No Known Allergies Allergy Verified 05/13/24 08:27 Review of Systems Review of Systems: All systems reviewed & are unremarkable except as noted in HPI and below PMFSH Past Medical History Medical History Migraine DDD (degenerative disc disease), cervical Arthritis IBS (irritable bowel syndrome) Surgical History Surgical History Hx of tonsillectomy Social History Social History Smoking packs per day: 0.5 Smoking cigarettes per day: 10.0 Years smoked: 16 Smoking pack-years: 8.00 Substance use: never Gender identity (if verbalized by the patient): Male Exam Narrative: GENERAL: Well appearing, well-nourished, non-toxic, in no acute distress. HEAD: Normocephalic, atraumatic. NECK: Supple. + posterior lymphadenopathy RESPIRATORY: Airway patent, respirations nonlabored. Clear to auscultation bilaterally, no rales, rhonchi, wheezing. CARDIOVASCULAR: Regular rate and rhythm without murmurs, rubs, or gallops. Peripheral pulses 2+ and equal bilaterally. ABDOMINAL: Soft, nontender, nondistended, no hepatosplenomegaly. Normoactive BS. MUSCULOSKELETAL: Moves all extremities. Strength/ROM intact without gross deformities. SKIN: Warm, dry, normal color. No rashes. NEURO: A&O X3. Speech clear. Cranial nerves II-XII intact. No ataxic movements. PSYCHIATRIC: Appropriate mood and affect. Normal interaction. Course Vital Signs Vital signs: Vital Signs Temperature 36.4 C 01/01/25 16:45 Pulse Rate 97 01/01/25 16:45 Respiratory Rate 18 01/01/25 16:45 Blood Pressure 143/96 H 01/01/25 16:45 Pulse Oximetry 100 01/01/25 16:45 Oxygen Delivery Room Air 01/01/25 16:45 Temperature 36.4 C 01/01/25 16:45 Pulse Rate 85 01/01/25 17:03 Respiratory Rate 16 01/01/25 17:03 Blood Pressure 138/101 H 01/01/25 17:03 Pulse Oximetry 98 01/01/25 17:03 Oxygen Delivery Room Air 01/01/25 17:03 MDM - Eye Problem MDM Narrative Medical decision making narrative: Patient is a 39-year-old male who presents to the ER with complaints of two lumps to his posterior neck. He reports he 1st noticed the lumps yesterday. Today he endorses significant fatigue, headache, nausea, bilateral eye itching, and small welts, one to his left hip, one to his left knee, and one to his left finger. Patient denies any sore throat, recent fevers, or shortness of breath. He endorses a history of a tonsillectomy but denies any other medical history relevant to this ER visit. Patient also endorses an intermittent dry cough. Labs Ordered:CBC, CMP, mono test Imaging Ordered: none necessary Medications Ordered: 1 L normal saline IV bolus, Toradol 15 mg IV Diagnosis: upper respiratory infection, posterior lymphadenopathy Patient Education/Shared MDM: Results of lab work shared with patient. He endorses mild improvement of symptoms following medication administration. Patient strongly advised to maintain hydration status upon discharge and follow-up with his PCP if his symptoms do not improve. He will not be discharged home with any new prescriptions. Strict return precautions provided. Patient verbalized understanding and is in agreement with plan. Vital signs stable at time of discharge. All questions answered. Differential Diagnosis Differential diagnosis: Likely conjunctivitis, periorbital cellulitis and other ( allergic conjunctivitis, upper respiratory infection, contact dermatitis, urticaria, mono) Lab Data Attestation: I reviewed the patient's lab results. 01/01/25 18:26 01/01/25 18:26 Labs: Lab Results 01/01/25 Range/Units 18:26 WBC 4.7 (4.5-10.0) K/mm3 RBC 4.36 L (4.6-6.20) M/mm3 Hgb 13.8 L (14.0-18.0) g/dL Hct 41.2 L (42.0-52.0) % MCV 94.5 (80-100) fl MCH 31.7 (26-34) pg MCHC 33.5 (32-36) g/dl RDW 12.6 (11.5-14.5) % Plt Count 230 (150-375) k/mm3 MPV 10.2 (7.4-10.4) fl Immature Gran % (Auto) 0.2 (0-0.5) % Neut % (Auto) 49.9 (45.5-73.1) % Lymph % (Auto) 36.6 (18.3-44.2) % Leon % (Auto) 7.8 (2.6-8.5) % Eos % (Auto) 4.0 (0-4.4) % Baso % (Auto) 1.5 H (0.2-1.2) % Lymph # (Auto) 1.73 (0.9-3.2) K/mm3 Leon # (Auto) 0.4 (0.1-0.6) K/mm3 Eos # (Auto) 0.2 (0-0.3) K/mm3 Baso # (Auto) 0.1 (0.0-0.1) K/mm3 Abs Immat Gran (auto) 0.01 (0.00-0.031) K/mm3 Absolute Neuts (auto) 2.4 (1.3-6.7) K/mm3 Absolute Nucleated RBC 0.000 (0.0-0.012) K/mm3 Nucleated RBC % 0.0 (0.0-0.2) % Sodium 138 (137-145) mmol/L Potassium 4.1 (3.4-5.0) mmol/L Chloride 106 (98-107) mmol/L Carbon Dioxide 26 (22-30) mmol/L Anion Gap 6 (4-12) mmol/L BUN 15 D (9-20) mg/dL Creatinine 0.97 (0.7-1.3) mg/dL Estim Creat Clear Calc 89 ml/min Estimated GFR > 60 (59 - ) Glucose 99 (65-110) mg/dL Calcium 9.5 (8.4-10.2) mg/dL Total Bilirubin 0.5 (0.2-1.3) mg/dL AST 34 (17-59) U/L ALT 26 (6-50) U/L Alkaline Phosphatase 82 (38-126) U/L Total Protein 7.0 (6.3-8.2) g/dL Albumin 4.0 (3.5-5.1) g/dL Monoscreen Negative (Negative) Discharge Plan Discharge Clinical Impression: Upper respiratory infection, Allergic rhinitis, Allergic conjunctivitis, Lymphadenopathy of left cervical region, Urticaria Patient Disposition: Home Condition: Stable Instructions: Antibiotic Form, Lymphadenopathy (ED), Allergies (ED) Additional Instructions: Please return to the ER with any worsening symptoms. Follow-up with primary care provider as needed if your symptoms don't improve in the next couple days. Your blood work today was reassuring. Please take Tylenol and/or Ibuprofen together for pain control. You may take Claritin or Zyrtec every day to help treat your cough, itching, etc. Patient Language: [place] Rican Follow-up/Referrals: PHYSICIAN,MARKETING PLANNER [Primary Care Provider, Internal Medicine] Tawanda Abel MD [Physician, Family Practice] Stand Alone Forms: Work/School Release IP Time of Disposition: 20:47
[2025-01-01] MEDS: SODIUM CHLORIDE 0.9% IV 1,000 ML 999 ML IV CONT (18:26)
[2025-01-01] MEDS: KETOROLAC 15 MG/ML VIAL (*BKC) IV PUSH (18:26)
[2025-01-01 18:35] LABS: Hematocrit 41.2 % (42.0-52.0); Hemoglobin 13.8 g/dL (14.0-18.0); Immature Granulocyte Percent A 0.2 % (0-0.5); Lymphocytes Absolute Auto 1.73 K/mm3 (0.9-3.2); Mean Corpuscular HGB Conc 33.5 g/dl (32-36); Mean Corpuscular Hemoglobin 31.7 pg (26-34); Mean Corpuscular Volume 94.5 fl (80-100); Nucleated Red Blood Cells Absolute Auto 0.000 K/mm3 (0.0-0.012); Nucleated Red Blood Cells Perc 0.0 % (0.0-0.2); Platelet Count Result 230 k/mm3 (150-375); Red Blood Count 4.36 M/mm3 (4.6-6.20); White Blood Count 4.7 K/mm3 (4.5-10.0)
[2025-01-01 18:49] LABS: Alanine Aminotransferase 26 U/L (6-50); Albumin Level 4.0 g/dL (3.5-5.1); Alkaline Phosphatase 82 U/L (38-126); Anion Gap 6 mmol/L (4-12); Aspartate Amino Transferase 34 U/L (17-59); Bilirubin,Total 0.5 mg/dL (0.2-1.3); Blood Urea Nitrogen 15 mg/dL (9-20); Calcium 9.5 mg/dL (8.4-10.2); Carbon Dioxide 26 mmol/L (22-30); Chloride 106 mmol/L (98-107); Estimated CRCL calculation 89 ml/min; Estimated Glomerular Filt Rate > 60; Glucose 99 mg/dL (65-110); Potassium 4.1 mmol/L (3.4-5.0); Sodium 138 mmol/L (137-145); Total Protein 7.0 g/dL (6.3-8.2)
[2025-01-01 19:03] LABS: Negative Monotest Control Negative (Negative); Positive Monotest Control Positive (Positive)
--- OUTSIDE RECORDS SUMMARY | 2025-01-01 20:20 | XMS_ITS | Encounter Summary ---
Author Organization [facility] Address [facility] [place] [address] Care Team Providers Care Manager Inpatient Name Role Phone Rajat Thomas MD Primary Care Provider Unavailable Rajat Thomas MD Primary Care Provider Unavailable Anum Williamson MD Primary Care Pr ovider Unavailable Jeanine Crawford MD Primary Care Provider [phone] Encounter Details Date Type Department Care Team (Late st Contact Info) Description 09/17/2014 Abstract [facility] Rajat Bernal Md, MD Social History Tobacco Use Types Packs/Day Years Used Date Smoking Tobacco: Never Assessed Sex and Gender Information Value Date Recorded Sex Assigned at Not on file Legal Sex Male 7:04 PM CDT Gender Identity Not on file Sexual Orientation Not on file documented as of this encounter Plan of Treatment Not on file documented as of this encounter Visit Diagnoses Not on filedocumented in this encounter Care Teams Manager Inpatient Relationship Specialty Start Date End Date Rajat Thomas MD PCP - General 03/17/15 Rajat Thomas MD PCP - General 02/09/14 Anum Williamson MD PCP - General FAMILY PRACTICE 12/01/21 07/22/22 Jeanine Crawford MD [address] [facility] [address] [place] [address] PCP - General INTERNAL MEDICINE 07/23/22 documented as of this encounter
--- OUTSIDE RECORDS SUMMARY | 2025-01-01 20:20 | XMS_ITS | Clinical Summary ---
Author Organization [facility] Address [address] [place] [address] Care Team Providers Care Legal Examiner Name Role Phone Jeanine Crawford MD Primary Care Provider [phone] Medications acetaminophen (TYLENOL) 325 MG tablet 02/15/2017 Active escitalopram (LEXAPRO) 10 MG tabletIndication s:Anxiety Take 1 tablet (10 mg total) by mouth daily. 30 tablet 1 12/06/2021 Active vitamin D3, cholecalciferol, (CHOLECALCIFEROL ) 1000 UNIT Tab tabletIndication s:Low vitamin D level Take 1 tablet (1,000 Units total) by mouth daily. 90 tablet 12/18/2021 Active Active Problems No known active problems Immunizations Immunization Administration Dates Next Due Tdap (Generic) 09/28/2021,01/20/2013 Social History Tobacco Use Types Packs/Day Years Used Date Smoking Tobacco: Every Day Cigarettes 1 20 Smokeless Tobacco: Never Tobacco Cessation:Ready to Q uit: Yes; Counseling Given: Yes Alcohol Use Standard Drinks/Week Comments Not Currently 0 (1 standard drink = 0.6 oz pur e alcohol) Sex and Gender Information Value Date Recorded Sex Assigned at Not on file Legal Sex Male 7:04 PM CDT Gender Identity Not on file Sexual Orientation Not on file Last Filed Vital Signs Vital Sign Reading Time Taken Comments Blood Pressure 118/77 12/06/2021 2:51 PM CDT Pulse 102 12/06/2021 2:51 PM CDT Temperature 37.2 C (98.9 F) 12/06/2021 2:51 PM CDT Respiratory Rate 20 12/06/2021 2:51 PM CDT Oxygen Saturation 99% 12/06/2021 2:51 PM CDT Inhaled Oxygen Concentration - - Weight 71.7 kg (158 lb) 12/06/2021 2:51 PM CDT Height 175.3 cm (5' 9) 12/06/2021 2:51 PM CDT Body Mass Index 23.33 12/06/2021 2:51 PM CDT Plan of Treatment Health Maintenance Due Date Last Done Comments Annual Physical 11/22/1987 Hepatitis C 2002 Hepatitis B Vaccines (1 of 3 - 19+ 3-dose series) 11/22/2003 Pneumococcal Vaccine: Pediatrics (0 to 5 Years) and At-Risk Patients (6 to 49 Years) (1 of 2 - PCV) 11/22/2003 HPV Vaccines (1 - 3-dose SCD M series) 11/22/2011 COVID-19 Vaccine (3 - 2024-2 6 season) 2024 08/04/2020, 07/07/2020 Influenza Adult (#1) 2024 DTaP, Tdap and Td Vaccines ( 3 - Td or Tdap) 09/29/2031 09/28/2021, 01/20/2013 Hepatitis A Vaccines Aged Out No long er eligible based on patient's age to complete this topic Meningococcal B Vaccine Aged Out No l onger eligible based on patient's age to complete this topic Meningococcal Vaccine Aged Out No zach elvie eligible based on patient's age to complete this topic RSV Immunizations Under 20 Months Aged Out No longer eligible b ased on patient's age to complete this topic [place] [address] [place] [address] [facility] Care Teams Legal Examiner Relationship Specialty Start Date End Date Jeanine Crawford MD [address] [address] PCP - General INTERNAL MEDICINE 07/23/22
--- OUTSIDE RECORDS SUMMARY | 2025-01-01 20:20 | XMS_ITS | Encounter Summary ---
Author Organization [facility] Address [facility] [place] [address] Care Team Providers Care Copy Worker Name Role Phone Rajat Thomas MD Primary Care Provider Unavailable Rajat Thomas MD Primary Care Provider Unavailable Anum Williamson MD Primary Care Pr ovider Unavailable Jeanine Crawford MD Primary Care Provider [phone] Encounter Details Date Type Department Care Team (Late st Contact Info) Description 10/11/2014 Abstract [facility] Rajat Bernal Md, MD Social History Tobacco [...] on filedocumented in this encounter Care Teams Copy Worker Relationship Specialty Start Date End Date Rajat Thomas MD PCP - General 03/17/15 Rajat Thomas MD PCP - General 02/09/14 Anum Williamson MD PCP - General FAMILY PRACTICE 12/01/21 07/22/22 Jeanine Crawford MD [address] [facility] [address] [place] [address] PCP - General INTERNAL MEDICINE 07/23/22 documented as of this encounter
--- OUTSIDE RECORDS SUMMARY | 2025-01-01 20:20 | XMS_ITS | Encounter Summary ---
Author Organization [facility] Address [facility] [place] [address] Care Team Providers Care Customer Service Supervisor Name Role Phone Anum Williamson MD Primary Care Pr ovider Unavailable Jeanine Crawford MD Primary Care Provider [phone] Encounter Details Date Type Department Care Team (Latest Contact Info) Description 12/24/2017 Abstract [facility] Rajat Thomas MD Social History Tobacco Use Types Packs/Day [...] on filedocumented in this encounter Care Teams Customer Service Supervisor Relationship Specialty Start Date End Date Anum Williamson MD PCP - General FAMILY PRACTICE 12/01/21 07/22/22 Jeanine Crawford MD [address] [address] PCP - General INTERNAL MEDICINE 07/23/22 documented as of this encounter
--- OUTSIDE RECORDS SUMMARY | 2025-01-01 20:20 | XMS_ITS | Clinical Summary ---
Author Organization [facility] Address [address] [place] [address] Care Team Providers Care Door Puller Name Role Phone No, Physician Primary Care Provider [phone] Allergies No known active allergies Medications No known medications Social History Tobacco Use Types Packs/Day Years Used Date Smoking Tobacco: Every Day Cigarettes Tobacco Cessation:Ready to Q uit: Not Asked; Counseling Given: Not Answered Personal Safety Answer Date Recorded Have you ever been in or are you currently in a harmful physical or emotional relationship or is someone making you feel afraid or unsafe? Denies 07/17/2024 Sex and Gender Information Value Date Recorded Sex Assigned at Not on file Legal Sex Male 9:08 PM SAMPLE CUTTER Gender Identity Not on file Sexual Orientation Not on file Last Filed Vital Signs Vital Sign Reading Time Taken Comments Blood Pressure 130/90 07/18/2024 4:30 AM CDT Pulse 85 07/18/2024 4:30 AM CDT Temperature 35.9 C (96.7 F) 07/17/2024 11:46 PM CDT Respiratory Rate 15 07/18/2024 4:30 AM CDT Oxygen Saturation 100% 07/18/2024 4:30 AM CDT Inhaled Oxygen Concentration - - Weight 83.9 kg (185 lb) 07/17/2024 11:46 PM CDT Height 175.3 cm (5' 9) 06/04/2024 9:34 AM CDT Body Mass Index 27.32 06/04/2024 9:34 AM CDT Plan of Treatment Health Maintenance Due Date Last Done Comments Depression Screening 1984 Hepatitis C Screening 1984 Varicella Vaccines (1 of 2 - 13+ 2-dose series) 1997 Hepatitis B Screening 2002 Regular Well Visit/Exam 18-64 2002 Pneumococcal vaccine <65 (1 of 2 - PCV) 11/22/2003 HPV Vaccines (1 - 3-dose SCDM series) 11/22/2011 Covid-19 Vaccine (3 - 2024- season) 2024, 07/07/2020 Influenza Vaccine (#1) 2024 DTaP/Tdap/Td Vaccine (4 - Td or Tdap) 09/29/2031 09/28/2021, 10/03/2014, 01/20/2013 Care Teams Door Puller Relationship Specialty Start Date End Date No, Physician PCP - General 06/18/18
--- OUTSIDE RECORDS SUMMARY | 2025-01-01 20:20 | XMS_ITS | Clinical Summary ---
Author Organization [facility] [employer] Address [address] [place] [address] Care Team Providers Care Nailer Operator Name Role Phone Cristel Mario APRN-METAL WORK DUCT INSTALLER Primary Care Provider + Source Comments [facility] [employer],non-owned Affiliates and Associated Physician Practices is amultiple site organization consisting of ambulatory clinics and hospital sitesin [place], [place], [place] and [place]. This disclosure is being madepursuant to the Care Everywhere program and may not contain all information available regarding this patient. Last updated 17.[facility] [employer] Allergies No known active allergies Medications * Be aware that medications may not be up to date on this document. Alwaysverify current medications with the patient. ibuprofen (MOTRIN) 600 MG tablet Take 600 mg by mouth every 6 hours as needed for Pain. Active traMADol (ULTRAM) 50 MG tablet Take 50 mg by mouth every 6 hours as needed for Pain Active Active Problems No known active problems Immunizations Immunization Administration Dates Next Due TDAP (7yrs+) 10/03/2014 Social History Tobacco Use Types Packs/Day Years Used Date Smoking Tobacco: Every Day Cigarettes Smokeless Tobacco: Never Alcohol Use Standard Drinks/Week Comments No 0 (1 standard drink = 0.6 oz pur e alcohol) Sex and Gender Information Value Date Recorded Sex Assigned at Not on file Legal Sex Male 11:44 AM SPEECH LANGUAGE PATHOLOGIST TRAVEL Gender Identity Not on file Sexual Orientation Not on file Last Filed Vital Signs Vital Sign Reading Time Taken Comments Blood Pressure 122/73 10/09/2014 6:44 PM CDT Pulse 80 10/09/2014 6:44 PM CDT Temperature 36.9 C (98.5 F) 10/09/2014 6:44 PM CDT Respiratory Rate 16 10/09/2014 6:44 PM CDT Oxygen Saturation 100% 10/09/2014 6:44 PM CDT Inhaled Oxygen Concentration - - Weight 72.6 kg (160 lb) 10/09/2014 6:44 PM CDT Height 175.3 cm (5' 9) 10/09/2014 6:44 PM CDT Body Mass Index 23.63 10/09/2014 6:44 PM CDT Plan of Treatment Health Maintenance Due Date Last Done Comments LIPID TESTING 1984 HIV SCREENING 11/22/1999 HEPATITIS C SCREENING 11/17/2002 HEPATITIS B VACCINE (1 of 3 - 19+ 3-dose series) 11/22/2003 HPV VACCINE (1 - 3-dose SCDM series) 11/22/2011 DEPRESSION SCREENING 02/19/2024 DTAP/TDAP/TD VACCINES (2 - T d or Tdap) 10/03/2024 10/03/2014 COVID-19 VACCINE (2023-2 5 season) 2024 INFLUENZA VACCINE (#1) 2024 ZOSTER VACCINE (1 of 2) 2034 HIB VACCINE Aged Out No longer eligi ble based on patient's age to complete this topic MENINGOCOCCAL (Group B) VACC INE SHARED DECISION-MAKING Aged Out No longer eligibl e based on patient's age to complete this topic MENINGOCOCCAL GROUPS A/C/Y/W VACCINE Aged Out No longer eligible b ased on patient's age to complete this topic PNEUMOCOCCAL VACCINE Aged Out No long er eligible based on patient's age to complete this topic Insurance [facility] [employer] Member Subscriber Plan / Payer (Ef fective for All Dates) Name:MounanathanCed honeycutt Member ID:Not on file Relation to Subscriber:Self Name:Ced Fowler Subscriber ID:Not on file Payer ID:Not on file Group ID:Not on file Type:Commercial Address: [address] [id number] [facility] [employer] [place] [address] PA[employer] GENERIC Member Subscriber Plan / Payer (Ef fective for All Dates) Name:Ced Fowler Relation to Subscriber:Self Name:Ced Fowler Payer ID:Not on file Group ID:Not on file Type:Worker's Comp x23 Address: [address] [place] [address] * Guarantor: E-SCREEN,SOIL Account Type Relation to Patient Date of Phone Billing Address Company Employer [employer] [address] [facility] Care Teams Nailer Operator Relationship Specialty Start Date End Date Cristel Mario, COP BREAKER-METAL WORK DUCT INSTALLER PCP - General Nurse Practitioner Family 10/03/14
== END 2025-01-01 20:54 | disposition home or self-care (01) ==
PROVIDERS: Emergency Provider Registered Nurse
DX: J06.9 Acute upper respiratory infection, unspecified (principal); J30.9 Allergic rhinitis, unspecified; H10.13 Acute atopic conjunctivitis, bilateral; R59.0 Localized enlarged lymph nodes; L50.9 Urticaria, unspecified; F17.210 Nicotine dependence, cigarettes, uncomplicated
CPT/HCPCS: 36415; 80053; 85025; 86308; 96361; 96374; 99284; J1885; J7030